=== PATIENT | male | born 1940 | race Caucasian/White ===

== ENCOUNTER → 2018-01-19 11:14 | Outpatient (CLI) | payer MEDICARE, SELFPAY ==
[2018-01-19 11:25] LABS: Add Manual Diff / Slide Review NO; Basophils Percent Auto 0.6 % (0-2); Eosinophils Percent Auto 1.5 % (2-4); Hemoglobin 14.5 g/dL (13.5-17.5); Lymphocytes Percent Auto 10.6 % (25-40); Mean Corpuscular HGB Conc 33.8 % (30-36); Mean Corpuscular Volume 97.6 fL (80-100); Monocytes Percent Auto 9.5 % (3-14); Neutrophils Absolute Auto 3900 /uL (3000-5900); Neutrophils Percent Auto 77.8 % (50-75); Platelet Count 228 X10^3/uL (150-400); Red Blood Cell Count 4.41 X10^6/uL (4.5-5.9)
[2018-01-19 11:43] LABS: Alanine Aminotransferase 20 IU/L (21-72); Albumin 3.8 g/dL (3.5-5.0); Albumin Globulin Ratio 1.2 (1.0-2.8); Alkaline Phosphatase 70 U/L (38-126); Aspartate Aminotransferase 20 IU/L (17-59); Bilirubin Total 0.5 mg/dL (0.2-1.3); Blood Urea Nitrogen 19 mg/dL (9-20); Calcium 8.6 mg/dL (8.4-10.2); Carbon Dioxide 27 mmol/L (22-32); Chloride 105 mmol/L (98-107); Estimated Glomerular Filt Rate > 60.0 mL/min (>60); Globulin 3.3 g/dL (1.7-4.1); Glucose 109 mg/dL (80-110); HEMOLYSIS < 15 (0-50); Potassium 4.8 mmol/L (3.4-5.1); Sodium 139 mmol/L (137-145); Total Protein 7.1 g/dL (6.3-8.2)
== END ==
PROVIDERS: PCP Family Medicine; Visit Provider Internal Medicine Hematology & Oncology
DX: C61 Malignant neoplasm of prostate (principal)
CPT/HCPCS: 36415; 80053; 84153; 85025

== ENCOUNTER → 2018-04-22 10:35 | Outpatient (CLI) | payer MEDICARE, SELFPAY ==
[2018-04-22 11:10] LABS: Add Manual Diff / Slide Review NO; Basophils Percent Auto 0.6 % (0-2); Eosinophils Percent Auto 1.5 % (2-4); Hematocrit 44.4 % (41-53); Lymphocytes Percent Auto 7.5 % (25-40); Mean Corpuscular HGB Conc 33.8 % (30-36); Mean Corpuscular Volume 97.8 fL (80-100); Monocytes Percent Auto 5.7 % (3-14); Neutrophils Absolute Auto 4900 /uL (3000-5900); Neutrophils Percent Auto 84.7 % (50-75); Platelet Count 240 X10^3/uL (150-400); Red Blood Cell Count 4.54 X10^6/uL (4.5-5.9); Red Cell Distribution Width 13.2 % (11.6-14.8); White Blood Cell Count 5.8 X10^3/uL (4.5-11.0)
[2018-04-22 11:24] LABS: Alanine Aminotransferase 21 IU/L (21-72); Albumin 3.7 g/dL (3.5-5.0); Albumin Globulin Ratio 1.2 (1.0-2.8); Alkaline Phosphatase 69 U/L (38-126); Aspartate Aminotransferase 21 IU/L (17-59); Bilirubin Total 0.5 mg/dL (0.2-1.3); Blood Urea Nitrogen 26 mg/dL (9-20); Calcium 8.7 mg/dL (8.4-10.2); Carbon Dioxide 29 mmol/L (22-32); Chloride 105 mmol/L (98-107); Estimated Glomerular Filt Rate > 60.0 mL/min (>60); Globulin 3.1 g/dL (1.7-4.1); Glucose 127 mg/dL (80-110); HEMOLYSIS < 15 (0-50); Potassium 4.5 mmol/L (3.4-5.1); Sodium 142 mmol/L (137-145); Total Protein 6.8 g/dL (6.3-8.2)
== END ==
PROVIDERS: PCP Family Medicine; Visit Provider Nurse Practitioner Gerontology
DX: C61 Malignant neoplasm of prostate (principal)
CPT/HCPCS: 36415; 80053; 84153; 84403; 85025

== ENCOUNTER → 2018-05-18 14:59 | Outpatient (CLI) | payer MEDICARE, SELFPAY ==
[2018-05-18 15:33] LABS: Add Manual Diff / Slide Review NO; Basophils Percent Auto 0.7 % (0-2); Eosinophils Percent Auto 3.1 % (2-4); Hematocrit 44.9 % (41-53); Hemoglobin 14.8 g/dL (13.5-17.5); Lymphocytes Percent Auto 10.2 % (25-40); Mean Corpuscular Hemoglobin 33.2 PG (26-34); Mean Corpuscular Volume 100.6 fL (80-100); Monocytes Percent Auto 9.2 % (3-14); Neutrophils Absolute Auto 3900 /uL (3000-5900); Neutrophils Percent Auto 76.8 % (50-75); Platelet Count 239 X10^3/uL (150-400); Red Blood Cell Count 4.46 X10^6/uL (4.5-5.9); Red Cell Distribution Width 13.2 % (11.6-14.8); White Blood Cell Count 5.1 X10^3/uL (4.5-11.0)
[2018-05-18 15:38] LABS: HEMOLYSIS 22 (0-50)
[2018-05-18 15:43] LABS: Alanine Aminotransferase 26 IU/L (21-72); Albumin 4.1 g/dL (3.5-5.0); Albumin Globulin Ratio 1.3 (1.0-2.8); Alkaline Phosphatase 69 U/L (38-126); Aspartate Aminotransferase 26 IU/L (17-59); Bilirubin Total 0.4 mg/dL (0.2-1.3); Blood Urea Nitrogen 24 mg/dL (9-20); Calcium 9.1 mg/dL (8.4-10.2); Carbon Dioxide 31 mmol/L (22-32); Chloride 105 mmol/L (98-107); Estimated Glomerular Filt Rate > 60.0 mL/min (>60); Globulin 3.1 g/dL (1.7-4.1); Glucose 126 mg/dL (80-110); Potassium 4.7 mmol/L (3.4-5.1); Sodium 144 mmol/L (137-145); Total Protein 7.2 g/dL (6.3-8.2)
== END ==
PROVIDERS: PCP Family Medicine; Visit Provider Nurse Practitioner Gerontology
DX: C61 Malignant neoplasm of prostate (principal)
CPT/HCPCS: 36415; 80053; 84153; 84403; 85025

== ENCOUNTER → 2018-05-26 07:44 | Outpatient (CLI) | payer MEDICARE, SELFPAY ==
--- NOTE | 2018-05-26 07:46 | DI.NM.S_ITS ---
PROCEDURE: [place] BONE SCAN WHOLE BODY RADIOPHARMACEUTICAL: 20.9 mCi Tc-99m MDP IV. INDICATIONS: PROSTATE CANCER TECHNIQUE: Delayed whole-body scintigrams were obtained approximately 3-4 hours after intravenous injection of radiotracer. COMPARISON: [place], [place], BONE SCAN WHOLE BODY, 09/03/2015, 14:35. [facility], CR, THORACIC SPINE 3 VIEWS, 07/21/2017, 13:47. [facility], XA, FRACTIONAL FLOW RESERVE, 04/20/2017, 14:07. [facility], CT, CHEST/ABD/PEL WITH CONTRAST, 08/26/2017, 12:30. [facility], CT, CT CHEST ABD PEL W CON, 05/26/2018, 9:02. [facility], CR, L-SPINE 2-3 VIEWS, 07/21/2017, 13:47. [facility], MR, T-SPINE WITHOUT CONTRAST, 08/26/2017, 12:29. [place], [place], BONE SCAN WHOLE BODY, 07/29/2017, 14:01. FINDINGS: There is increased uptake in sternum, correlating with an old sternal fracture. Compared to the last bone scan, the intensity of the uptake has decreased. There are foci of increased uptake in thoracic and lumbar spine. Prior radiographs, CT and MRI demonstrate multiple compression fractures and degenerative changes involving the thoracic and lumbar spine. There is a focal uptake in the right aspect of the sternoclavicular junction, unchanged since 08/30/3015, likely degenerative in nature. Low level increased uptake in multiple right posterior ribs are most likely posttraumatic in nature (related to old rib fractures). There are foci of increased periarticular activity involving involving the shoulders bilaterally, wrists and hands bilaterally, hips bilaterally (right greater than left), knees bilaterally, and both feet, compatible with degenerative/arthritic changes. There is normal soft tissue uptake. IMPRESSION: Multiple foci of scintigraphic abnormalities are present as described. Osseous metastasis could be obscured by superimposed compression fractures, degenerative changes, and rib fractures as bone scan findings are nonspecific. Please correlate with PSA. Dictated by: Juan Najera M.D. on 05/26/2018 at 16:42 Approved by: Juan Najera M.D. on 05/27/2018 at 14:26
--- NOTE | 2018-05-26 09:07 | DI.CT.S_ITS ---
PROCEDURE: CT CHEST ABD PEL W CON INDICATIONS: re-staging prostate cancer TECHNIQUE: After the administration of oral and intravenous contrast, 5 mm thick sections acquired from the lung apices to the symphysis. 5 mm coronal and sagittal reformats were performed, with additional 7 mm coronal MIP reformats through the lungs. For radiation dose reduction, the following was used: automated exposure control, adjustment of mA and/or kV according to patient size. COMPARISON: [facility], [place], BONE SCAN WHOLE BODY, 07/29/2017, 14:01. [facility], CT, ABDOMEN/PELVIS WITH CONTRAST, 09/03/2015, 11:37. [facility], CT, THORAX WITHOUT CONTRAST, 12/03/2015, 10:05. [facility], CT, THORAX WITHOUT CONTRAST, 09/12/2015, 10:08. [facility], CT, CHEST/ABD/PEL WITH CONTRAST, 08/26/2017, 12:30. FINDINGS: Image quality: Excellent. CHEST: Lungs and pleura: No acute consolidation. 2 mm presumed calcified granuloma seen in the right lung on image 42 series 3. There is mild subsegmental atelectasis/scarring. Subpleural nodular appearance measuring 3 mm seen in the left upper lobe on image 16 is unchanged.. No pleural effusions or pneumothorax. Central and peripheral airways appear patent and normal in caliber. Mediastinum: Heart size is normal. No pericardial effusion. [place] mediastinal lymph nodes without pathologic enlargement. No mediastinal or hilar adenopathy by size criteria. Thoracic aorta and central pulmonary arteries are normal in size. Esophagus is normal in caliber. No hiatal hernia. Chest wall: No axillary or supraclavicular adenopathy by size criteria. Thyroid gland unremarkable. ABDOMEN: Solid organs: Mild hepatic steatosis. Gallbladder unremarkable. Biliary system is non dilated. Pancreas enhances normally. Spleen is normal in size and enhancement. No adrenal nodules. Mild bilateral cortical atrophy and thinning. Nonobstructing 1 mm left renal calculus. Simple appearing left renal cyst. No hydronephrosis. The Peritoneum and bowel: Incidentally noted duodenal diverticulum as before. No free fluid or air. Colonic diverticulosis is seen without evidence of acute complication. Rectum is grossly unremarkable Nodes and vessels: No retroperitoneal or mesenteric adenopathy by size criteria. Aorta and inferior vena cava are normal in size. Miscellaneous: Fat-containing right paramedian supraumbilical hernia is enlarged slightly measuring 2 cm. Small fat containing umbilical hernia also noted as before. PELVIS: Genitourinary: Mild circumferential bladder wall thickening, which appears grossly unchanged and recommend clinical correlation. Miscellaneous: Previously described low-attenuation right pelvic sidewall presumed fluid collection may represent seroma or hematoma versus a necrotic treated lymphadenopathy. Internal attenuation measures approximate 7 Hounsfield units and is grossly unchanged in size. Bones: Diffuse osteopenia. L5 compression fracture appears grossly unchanged. Diffuse facet arthropathy. No definite sternal lesion. Chronic rib fractures with callus formation and posttraumatic deformity. IMPRESSION: Slight increase in size of right paramedian supraumbilical fat containing hernia, otherwise, no interval change or evidence of progressive metastatic disease. Presumed right pelvic sidewall hematoma or seroma versus treated disease appears unchanged. Chronic and incidental findings as above. Dictated by: Dimitris Mendez M.D. on 05/26/2018 at 10:12 Approved by: Dimitris Mendez M.D. on 05/26/2018 at 10:26
== END ==
PROVIDERS: PCP Family Medicine; Visit Provider Internal Medicine Hematology & Oncology
DX: C61 Malignant neoplasm of prostate (principal); K42.9 Umbilical hernia without obstruction or gangrene; M85.80 Other specified disorders of bone density and structure, unspecified site; K76.0 Fatty (change of) liver, not elsewhere classified; N20.0 Calculus of kidney; M48.56XS Collapsed vertebra, not elsewhere classified, lumbar region, sequela of fracture; M19.91 Primary osteoarthritis, unspecified site; Z87.81 Personal history of (healed) traumatic fracture
CPT/HCPCS: 71260; 74177; 78306; A9503; Q9967

== ENCOUNTER → 2018-06-28 17:42 | Outpatient (CLI) | payer MEDICARE, SELFPAY ==
--- NOTE | 2018-06-28 17:43 | DI.MRI.S_ITS ---
PROCEDURE: MR PELIS WO/W CON INDICATIONS: Restaging prostate cancer. TECHNIQUE: Coronal HASTE, axial T1 FSE with fat saturation, 3-plane nonbreath-hold T2 FSE. After the administration of contrast, dynamic axial, delayed axial and coronal VIBE or 2-D FLASH with fat saturation through the pelvis. Optional diffusion weighted imaging and ADC may be performed. COMPARISON: [facility], CT, ABDOMEN/PELVIS WITH CONTRAST, 09/03/2015, 11:37. [facility], CT, CHEST/ABD/PEL WITH CONTRAST, 08/26/2017, 12:30. [facility], CT, CT CHEST ABD PEL W CON, 05/26/2018, 9:02. FINDINGS: Image quality: Diagnostic. Prostate: The prostate is surgically absent. No discrete mass lesion is demonstrated in the surgical bed. There is mild nonspecific enhancement along the urethra at the base of the bladder and proximally in the penis. Genitourinary system: There is trabeculation of the bladder wall compatible with sequelae of chronic bladder outlet obstruction. No discrete bladder mass identified. Distal ureters are non distended. Bowel and peritoneum: No pathologic free pelvic fluid. Inferior colon and small bowel loops are normal in caliber. There is colonic diverticulosis without acute diverticulitis. Nodes and vessels: No definite pelvic or inguinal adenopathy by size criteria. Along the right pelvic sidewall, there is a thin-walled septated fluid collection redemonstrated measuring 4.9 x 3.2 x 2.9 cm. There is heterogeneous internal signal. Following contrast administration, there is mild enhancement of the wall and septum without internal solid enhancement or nodular components. Findings most likely represent a postsurgical seroma. Iliac vessels are normal in caliber. Soft tissues: No inguinal hernias. Bones: Marrow demonstrates normal overall signal, without definite suspicious lesions to suggest metastases. There are seen 3 changes in the right hip with subchondral edema, cystic changes, and enhancement in the superior acetabular rim. Mild indistinct periarticular soft tissue enhancement is also noted lateral to the femoral necks compatible with degenerative or inflammatory changes. IMPRESSION: 1. Postsurgical changes status post prostatectomy without suspicious mass lesions in the prostate bed or pelvis. Mild nonspecific enhancement is demonstrated along the urethra. The findings likely represent sequela of prior surgery or a mild infectious or inflammatory process. Recurrent disease is not fully excluded but considered less likely. 2. Septated right pelvic side wall fluid collection without discrete solid or nodular masslike component likely represents a postsurgical seroma. 3. Diverticulosis without acute diverticulitis. 4. 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 No definite suspicious bony lesions to suggest osseous metastatic disease. Dictated by: Rich Crowe M.D. on 06/29/2018 at 11:11 Approved by: Rich Crowe M.D. on 06/29/2018 at 11:26
[2018-06-28 18:20] LABS: Estimated Glomerular Filt Rate > 60.0 mL/min (>60)
== END ==
PROVIDERS: PCP Family Medicine; Visit Provider Internal Medicine Hematology & Oncology
DX: C61 Malignant neoplasm of prostate (principal); N32.89 Other specified disorders of bladder; K57.90 Diverticulosis of intestine, part unspecified, without perforation or abscess without bleeding; M16.11 Unilateral primary osteoarthritis, right hip
CPT/HCPCS: 36415; 72197; 82565; A9579

== ENCOUNTER 2018-07-26 19:45 | Emergency (ER) | payer MEDICARE, SELFPAY ==
--- NOTE | 2018-07-26 19:51 | DI.RAD.S_ITS ---
PROCEDURE: XR CHEST 2V INDICATIONS: trauma TECHNIQUE: 2 views of the chest were acquired. COMPARISON: [facility], , CHEST 1 VIEW, 04/18/2017, 14:55. FINDINGS: Surgical changes and devices: None. Lungs and pleura: No pleural effusions or pneumothorax. Lungs are unchanged, mildly distorted by old right-sided posterior rib fractures.. Mediastinum: Mediastinal contours are normal. Heart size is normal. Bones and chest wall: No suspicious bony abnormalities that would suggest acute trauma but there are old right-sided rib fractures posteriorly and mid thoracic adjacent wedge compression fractures. Soft tissues appear unremarkable. IMPRESSION: Old right-sided posterior rib fractures, no acute trauma to the left chest is found. Old mid thoracic wedge compression fractures, no acute spine fracture suspected. Dictated by: Bashir Hardin M.D. on 07/26/2018 at 20:51 Approved by: Bashir Hardin M.D. on 07/26/2018 at 20:53
[2018-07-26 19:52] VITALS: BP 158/75; PULSE 57; RESP 18; TEMP 36.2; O2SAT 99
--- NOTE | 2018-07-27 00:42 | PC.NURSE ---
[id number] Pt ambulating in ED hallway without distress. Pt asking for chest XR results, Dr Churchill notified. Apology and explaination given to patient for wait, he stated he just wants his results so he can go.
--- NOTE | 2018-07-27 02:52 | ED.BACK ---
HPI - Back Pain/Injury General Chief Complaint: Back Pain/Injury Stated Complaint: kicked by a horse in his back today,lungs hurt Time Seen by Provider: 07/26/18 23:48 Related Data Home Medications Medication Instructions Recorded Confirmed sildenafil [Viagra] 100 mg PO 3 X WEEK PRN #0 04/18/17 06/10/18 [GARLIC OIL] 1 cap PO QDAY #0 08/13/17 06/10/18 calcium carbonate-vitamin D3 1 tab PO QDAY #0 08/13/17 06/10/18 [Oyster Shell Calcium-Vit D3] zinc gluconate 1 tab PO QDAY #0 08/13/17 06/10/18 ibuprofen [Advil] 400 mg PO Q6HP PRN #0 08/27/17 06/10/18 Allergies Allergy/AdvReac Type Severity Reaction Status Date / Time timolol Allergy Verified 07/26/18 19:52 fentanyl AdvReac Verified 07/26/18 19:52 [facility] Social History Smoking Status: Never smoker Exam Initial Vital Signs Initial Vital Signs: Vital Signs Temperature 97.1 F L 07/26/18 19:52 Pulse Rate 57 L 07/26/18 19:52 Respiratory Rate 18 07/26/18 19:52 Blood Pressure 158/75 H 07/26/18 19:52 Pulse Oximetry 99 07/26/18 19:52 Course Course Narrative: The patient eloped from the emergency department, prior to being seen by me. Due to high volumes and long wait times in the lobby, pt's x-ray had been performed prior to his being brought into the emergency department, and I did not appreciate any emergent findings. Orders Ordered: ED Orders 07/26/18 19:51 XR chest 2V Stat Vital Signs - 8 hr 07/26/18 19:52 Temperature 97.1 F L Pulse Rate 57 L Respiratory Rate 18 Blood Pressure 158/75 H Pulse Oximetry 99 Discharge Plan Departure Patient Disposition: Left Without Being Seen Clinical Impression: Patient left without being seen Discharge Date/Time: 07/27/18 00:10 Interventions: ED Discharge Assessment Last Done: 07/27/18 00:43
--- NOTE | 2018-07-27 02:55 | ED_ITS ---
HPI - Back Pain/Injury General Chief Complaint: Back Pain/Injury Stated Complaint: kicked by a horse in his back today,lungs hurt Time Seen by Provider: 07/26/18 23:48 Related Data Home Medications Medication Instructions Recorded Confirmed sildenafil [Viagra] 100 mg PO 3 X WEEK PRN #0 04/18/17 06/10/18 [GARLIC OIL] 1 cap PO QDAY #0 08/13/17 06/10/18 calcium carbonate-vitamin D3 1 tab PO QDAY #0 08/13/17 06/10/18 [Oyster Shell Calcium-Vit D3] zinc gluconate 1 tab PO QDAY #0 08/13/17 06/10/18 ibuprofen [Advil] 400 mg PO Q6HP PRN #0 08/27/17 06/10/18 Allergies Allergy/AdvReac Type Severity Reaction Status Date / Time timolol Allergy Verified 07/26/18 19:52 fentanyl AdvReac Verified 07/26/18 19:52 [facility] Social History Smoking Status: Never smoker Exam Initial Vital Signs Initial Vital Signs: Vital Signs Temperature 97.1 F L 07/26/18 19:52 Pulse Rate 57 L 07/26/18 19:52 Respiratory Rate 18 07/26/18 19:52 Blood Pressure 158/75 H 07/26/18 19:52 Pulse Oximetry 99 07/26/18 19:52 Course Course Narrative: The patient eloped from the emergency department, prior to being seen by me. Due to high volumes and long wait times in the lobby, pt's x- ray had been performed prior to his being brought into the emergency department , and I did not appreciate any emergent findings. Orders Ordered: ED Orders 07/26/18 19:51 XR chest 2V Stat Vital Signs - 8 hr 07/26/18 19:52 Temperature 97.1 F L Pulse Rate 57 L Respiratory Rate 18 Blood Pressure 158/75 H Pulse Oximetry 99 Discharge Plan Departure Patient Disposition: Left Without Being Seen Clinical Impression: Patient left without being seen Discharge Date/Time: 07/27/18 00:10 Interventions: ED Discharge Assessment Last Done: 07/27/18 00:43
== END 2018-07-27 00:10 | disposition left against medical advice (07) ==
PROVIDERS: Emergency Provider Emergency Medicine; PCP Family Medicine
DX: M54.9 Dorsalgia, unspecified (principal)
CPT/HCPCS: 71046; 99281; 99282

== ENCOUNTER → 2018-11-20 08:34 | Outpatient (CLI) | payer MEDICARE, SELFPAY ==
[2018-11-20 09:22] LABS: Add Manual Diff / Slide Review NO; Alanine Aminotransferase 19 IU/L (21-72); Albumin 4.1 g/dL (3.5-5.0); Albumin Globulin Ratio 1.3 (1.0-2.8); Alkaline Phosphatase 71 U/L (38-126); Aspartate Aminotransferase 24 IU/L (17-59); Basophils Absolute Auto 0 /uL (0-100); Basophils Percent Auto 0.7 % (0-2); Bilirubin Total 0.7 mg/dL (0.2-1.3); Blood Urea Nitrogen 17 mg/dL (9-20); Calcium 9.1 mg/dL (8.4-10.2); Carbon Dioxide 28 mmol/L (22-32); Chloride 104 mmol/L (98-107); Eosinophils Absolute Auto 100 /uL (0-450); Eosinophils Percent Auto 2.9 % (2-4); Estimated Glomerular Filt Rate > 60.0 mL/min (>60); Globulin 3.2 g/dL (1.7-4.1); Glucose 97 mg/dL (80-110); HEMOLYSIS < 15 (0-50); Hematocrit 43.8 % (41-53); Hemoglobin 15.1 g/dL (13.5-17.5); Lymphocytes Absolute Auto 500 /uL (1100-4500); Lymphocytes Percent Auto 14.4 % (25-40); Mean Corpuscular HGB Conc 34.5 % (30-36); Mean Corpuscular Hemoglobin 33.7 PG (26-34); Mean Corpuscular Volume 97.7 fL (80-100); Monocytes Absolute Auto 400 /uL (0-900); Monocytes Percent Auto 11.5 % (3-14); Neutrophils Absolute Auto 2600 /uL (1500-7000); Neutrophils Percent Auto 70.5 % (50-75); Platelet Count 229 X10^3/uL (150-400); Potassium 4.4 mmol/L (3.4-5.1); Red Blood Cell Count 4.48 X10^6/uL (4.5-5.9); Sodium 139 mmol/L (137-145); Total Protein 7.3 g/dL (6.3-8.2); White Blood Cell Count 3.7 X10^3/uL (4.5-11.0)
[2018-11-20 09:51] LABS: Prostate Specific Antigen 0.283 ng/mL (0.10-4.00)
[2018-11-20 09:54] LABS: Testosterone 13.4 ng/dL (71.8-623)
[2018-11-23 15:04] LABS: Cholesterol 208 mg/dL (140-199); HDL Cholesterol 59 mg/dL (40-60); LDL Cholesterol Calculated 130 mg/dL (<100); Triglycerides 93 mg/dL (35-150)
[2018-11-23 15:33] LABS: Thyroid Stimulating Hormone 1.57 uIU/mL (0.47-4.68)
== END ==
PROVIDERS: PCP Family Medicine; Visit Provider Internal Medicine Hematology & Oncology
DX: I25.10 Atherosclerotic heart disease of native coronary artery without angina pectoris (principal); C61 Malignant neoplasm of prostate; Z00.00 Encounter for general adult medical examination without abnormal findings
CPT/HCPCS: 36415; 80053; 80061; 84153; 84403; 84443; 85025

== ENCOUNTER → 2019-02-09 16:30 | Outpatient (CLI) | payer MEDICARE, SELFPAY ==
--- NOTE | 2019-02-09 | DI.RAD.S_ITS ---
PROCEDURE: XR HAND LT MIN 3V INDICATIONS: FALL TECHNIQUE: 3 views of the hand(s) acquired. COMPARISON: None. FINDINGS: Bones: Acute intra-articular fracture involving ulnar aspect of fifth metacarpal base with dorsal and medially displaced fracture fragment. Osteophytic changes are noted throughout left hand and wrist. Diffuse osteopenia is seen. No other fracture or dislocation.. Carpal bones are normally aligned. No suspicious bony lesions. Soft tissues: No suspicious soft tissue calcifications. IMPRESSION: Acute intra-articular and displaced fracture involving the fifth metacarpal base as above. Left hand and wrist osteophytes. No other fracture or dislocation. Osteopenia. Dictated by: Darron Domínguez M.D. on 02/09/2019 at 18:05 Approved by: Darron Domínguez M.D. on 02/09/2019 at 18:06
--- NOTE | 2019-02-09 16:33 | DI.RAD.S_ITS ---
PROCEDURE: XR WRIST LT MIN 3V INDICATIONS: LEFT WRIST PAIN S/P FALL TECHNIQUE: 3 views of the wrist were acquired. COMPARISON: None. FINDINGS: Bones: Acute fracture involving the ulnar aspect of fifth metacarpal base with fracture line extending to fifth CMC joint and medially displaced fracture fragment. Osteophytic changes are noted throughout wrist joints. No other fracture or dislocation is seen.. No suspicious bony lesions. Scaphoid view: Scaphoid is grossly intact. Soft tissues: No suspicious soft tissue calcifications. IMPRESSION: Acute displaced fifth metacarpal base intra-articular fracture as above. Dictated by: Darron Domínguez M.D. on 02/09/2019 at 18:04 Approved by: Darron Domínguez M.D. on 02/09/2019 at 18:05
== END ==
PROVIDERS: PCP Family Medicine; Visit Provider Family Medicine
DX: M25.532 Pain in left wrist (principal); S62.317A Displaced fracture of base of fifth metacarpal bone, left hand, initial encounter for closed fracture; W19.XXXA Unspecified fall, initial encounter; M25.742 Osteophyte, left hand; M25.732 Osteophyte, left wrist; M85.842 Other specified disorders of bone density and structure, left hand
CPT/HCPCS: 73110; 73130

== ENCOUNTER → 2019-02-17 12:40 | Oncology outpatient (ONC) | payer MEDICARE, SELFPAY ==
--- NOTE | 2018-01-22 08:28 | P.PNONC_ITS ---
Assessment and Plan (1) Prostate cancer Current visit: Yes Status: Acute 01/22/18 09:08 Mr Kapadia is a 77-year-old male with a history of Carcinoma of the prostate diagnosed in 2015, status post induction Lupron for 5 months followed by robotic prostatectomy with pelvic lymph node dissection, 03/28/2016, in [place]. No new findings or symptoms to suggest metastatic disease. PSA remains quite stable at 1.480. Previously was 1.49. CBC and CMP otherwise unremarkable. Patient has no clinical signs or symptoms of disease recurrence. Plan is to return to clinic in 3 months for provider visit CBC CMP PSA testosterone. - Time Spent with Patient 25 mins face to face 5 mins review of records prior 5 mins dictation PN -Subjective Interval history: Mr. Kapadia is a 77-year-old gentleman with a history of stage IIIC (ypT3 pN0 M0) carcinoma of the prostate, status post robotic prostatectomy with bilateral pelvic lymph node dissection, 03/28/2016, following 5 months of induction Lupron. Surgery performed in [place]. [place] 4 + 3 =7 disease. In review of Dr Garcia notes plan was to treat for PSA of 5 or higher. Mr Kapadia presents for 2 month clinical evaluation. He has no new complaints on exam today whatsoever. He does continue to have chronic back pain also some knee pain. He has severe kyphosis. He has old vertebral fractures. He will occasionally take Tylenol or Advil. Otherwise doing quite well. No change in bowel or bladder habits. No change in appetite, weight is stable. No new musculoskeletal pain. No headaches. No cough, fever, chills. No recent illnesses, no recent infections. PAST MEDICAL HISTORY: 1. Carcinoma of the prostate, stage IIIC (ypT3 pN0 M0). Treated with induction Lupron, 10/2015 to 03/2016. Robotic prostatectomy with bilateral pelvic lymph node dissection on 03/28/2016 in [place]. Adenocarcinoma, [place] score 4 + 3 = 7 involving 15% of entire gland according to Dr. Kaba's note. Bilateral direct extension into seminal vesicles noted. Negative margins. Twelve lymph nodes, all negative. 2. Hyperlipidemia. 3. Chronic back pain, secondary to past fractures and trauma. Home Medications and Allergies Home Medications Medication Instructions Recorded Confirmed Type sildenafil [Viagra] 100 mg PO 3 X WEEK PRN #0 04/18/17 History [GARLIC OIL] 1 cap PO QDAY #0 08/13/17 History atorvastatin [Lipitor] 20 mg PO HS #0 08/13/17 History calcium carbonate-vitamin D3 1 tab PO QDAY #0 08/13/17 History [Oyster Shell Calcium-Vit D3] zinc gluconate 1 tab PO QDAY #0 08/13/17 History ibuprofen [Advil] 400 mg PO Q6HP PRN #0 08/27/17 History Exam Narrative: well appearing - Constitutional positive no acute distress, positive average body habitus - Routine HEENT Exam Head: Present: normocephalic, atraumatic Eye: Present: EOMI, PERRL, normal accommodation, conjunctivae pink. Absent: conjunctival icterus, scleral injection ENT: Present: mucous membranes moist - Routine Neck Exam Present: supple. Absent: lymphadenopathy - Routine Respiratory Exam Present: Clear to auscultation bilaterally, decreased breath sounds. Absent: rales, rhonchi, wheezes - Routine Cardiovascular Exam Present: RRR, S1, S2. Absent: murmur, gallop, rubs, JVD - Routine Abdominal Exam Present: soft, normoactive bowel sounds. Absent: tenderness, distended, organomegaly - Routine Extremities Exam Absent: edema, calf tenderness - Routine Skin Exam Present: intact, normal turgor. Absent: petechiae - Routine Neurological Exam Present: alert, oriented X3 - Routine Psychiatric Exam Present: normal affect
[2018-01-22 08:45] VITALS: BP 139/74; PULSE 52; RESP 18; TEMP 36.8; O2SAT 97
--- NOTE | 2018-04-26 10:14 | ONC.APRN.PN ---
PN -Subjective Interval history: Mr. Kapadia is a 77-year-old gentleman with a history of stage IIIC (ypT3 pN0 M0) carcinoma of the prostate, status post robotic prostatectomy with bilateral pelvic lymph node dissection, 03/28/2016, following 5 months of induction Lupron. Surgery performed in [place]. [place] 4 + 3 =7 disease. In review of Dr Garcia notes plan was to treat for PSA of 5 or higher. Mr Kapadia presents for 2 month clinical evaluation. He has no new complaints on exam today whatsoever. He does continue to have chronic back pain also some knee pain. He has severe kyphosis. He has old vertebral fractures. He will occasionally take Tylenol or Advil. Otherwise doing quite well. No change in bowel or bladder habits. No change in appetite, weight is stable. No new musculoskeletal pain. No headaches. No cough, fever, chills. No recent illnesses, no recent infections. PSA today 2.230, previously 1.480 01/22/2018. Testosterone today 203 PAST MEDICAL HISTORY: 1. Carcinoma of the prostate, stage IIIC (ypT3 pN0 M0). Treated with induction Lupron, 10/2015 to 03/2016. Robotic prostatectomy with bilateral pelvic lymph node dissection on 03/28/2016 in [place]. Adenocarcinoma, [place] score 4 + 3 = 7 involving 15% of entire gland according to Dr. Kaba's note. Bilateral direct extension into seminal vesicles noted. Negative margins. Twelve lymph nodes, all negative. 2. Hyperlipidemia. 3. Chronic back pain, secondary to past fractures and trauma. Home Medications and Allergies Home Medications Medication Instructions Recorded Confirmed Type sildenafil [Viagra] 100 mg PO 3 X WEEK PRN #0 04/18/17 History [GARLIC OIL] 1 cap PO QDAY #0 08/13/17 History calcium carbonate-vitamin D3 1 tab PO QDAY #0 08/13/17 History [Oyster Shell Calcium-Vit D3] zinc gluconate 1 tab PO QDAY #0 08/13/17 History ibuprofen [Advil] 400 mg PO Q6HP PRN #0 08/27/17 History Exam Vital signs: Last Vital Signs Temp 98.2 F 01/22/18 08:45 Pulse 52 L 01/22/18 08:45 Resp 18 01/22/18 08:45 BP 139/74 H 01/22/18 08:45 Pulse Ox 97 01/22/18 08:45 - Constitutional positive no acute distress, positive average body habitus - Routine HEENT Exam Eye: Present: conjunctivae pink. Absent: conjunctival icterus, scleral injection ENT: Present: mucous membranes moist, oropharynx clear - Routine Neck Exam Present: supple. Absent: lymphadenopathy - Routine Chest/Breast/Axilla Exam Axillae: Absent: lymphadenopathy, mass - Routine Respiratory Exam Present: Clear to auscultation bilaterally. Absent: rales, rhonchi, wheezes - Routine Cardiovascular Exam Present: RRR, S1, S2. Absent: JVD - Routine Abdominal Exam Present: soft, normoactive bowel sounds. Absent: tenderness, distended, organomegaly, mass - Routine Extremities Exam Absent: edema - Routine Skin Exam Present: intact, normal turgor - Routine Neurological Exam Present: alert, oriented X3 - Routine Psychiatric Exam Present: normal affect Assessment and Plan (1) Prostate cancer Current visit: No Status: Acute Mr. Kapadia is a 77-year-old gentleman with a history of stage IIIC (ypT3 pN0 M0) carcinoma of the prostate, status post robotic prostatectomy with bilateral pelvic lymph node dissection, 03/28/2016, following 5 months of induction Lupron. Surgery performed in [place]. [place] 4 + 3 =7 disease. In review of Dr Garcia notes plan was to treat for PSA of 5 or higher. PSA today 2.230, previously 1.480 01/22/2018. The pt understands his PSA is up and needs to be followed closely. Pt remains asymptomatic. Testosterone today 203 I have asked the pt to return in 4 weeks to establish with one of our new oncologists. We will check a PSA and testosterone a few days prior. Pt understands if PSA remains elevated we will likely order a CT also bone scan and treatment may very well be indicated.
[2018-04-26 11:43] VITALS: BP 129/77; PULSE 60; RESP 18; TEMP 36.8; O2SAT 97
--- NOTE | 2018-04-26 12:16 | PC.NURSE ---
Critical PLT 10 taken from lab. PLT tx ordered per Dr. Mckeon, to be transfused tomorrow.
[2018-05-24 14:59] VITALS: BP 160/89; PULSE 53; RESP 18; TEMP 36.6; O2SAT 99
--- NOTE | 2018-05-24 15:12 | P.PNONC_ITS ---
PN -Subjective Interval history: Chief Complaint Prostate cancer, biochemical relapse? Oncological History Mr. Kapadia is a 77-year-old gentleman with a history of stage IIIC (ypT3 pN0 M0) carcinoma of the prostate, status post robotic prostatectomy with bilateral pelvic lymph node dissection, 03/28/2016, following 5 months of induction Lupron which was initially intended for part of the plan for proton therapy. Patient changed his mind and decided to get surgery instead. Surgery performed in [place]. [place] 4 + 3 =7 disease involving 15% of entire gland according to Dr. Kaba's note. Bilateral direct extension into seminal vesicles noted. Negative margins. Twelve lymph nodes. In review of Dr Garcia notes plan was to treat for PSA of 5 or higher. According to his PSA level has never decreasd to 0 after the surgery. After the surgery, he did not continue lupron. he said that the PSA has been gradually and slowly going up. He said he noticed that the doubling time has been less than 6 months. In December 2017, he underwent CT scan and bone scan and all of them were negative. Interim Events: He has pain every where, from trauma. He also has osteoporosis. He had fall 15 years ago with back vertebreal fracture. He has a couple of incisonal hernia with some mild discomfort.No hematuira. No pain on urination. - Additional ROS All systems PM: reviewed and no additional remarkable complaints except as stated Home Medications and Allergies Home Medications Medication Instructions Recorded Confirmed Type sildenafil [Viagra] 100 mg PO 3 X WEEK PRN #0 04/18/17 History [GARLIC OIL] 1 cap PO QDAY #0 08/13/17 History calcium carbonate-vitamin D3 1 tab PO QDAY #0 08/13/17 History [Oyster Shell Calcium-Vit D3] zinc gluconate 1 tab PO QDAY #0 08/13/17 History ibuprofen [Advil] 400 mg PO Q6HP PRN #0 08/27/17 History Exam Vital signs: Last Vital Signs Temp 97.9 F 05/24/18 14:59 Pulse 53 L 05/24/18 14:59 Resp 18 05/24/18 14:59 BP 160/89 H 05/24/18 14:59 Pulse Ox 99 05/24/18 14:59 ECOG 1 Narrative: Constitutional: Well developed, well nourished, not in any acute respiratory distress, average body habitus, well groomed, pleasant and cooperative. HEENT: Normocephalic atraumatic. Extraocular muscle movement intact. Pupils are round, equal and reactive to light and accommodations. Anicteric sclera. No hearing difficulty; Oral mucus membrane moist and without ulcers. Neck: Supple, symmetrical, and tracheal midline; No palpable thyromegaly and no palpable lymph nodes. Respiratory: No use of accessory muscles. Clear to auscultation, and no wheezes or rales or rubs. Cardiovascular: Regular rate and rhythm, S1 and S2 normal, no murmurs gallops or rubs. No JVD. No pitting edema of lower extremities. Abdomen: Soft, nontender, non-distended, bowel sounds normal, no palpable organomegaly, no hernia, no palpable masses. Lower extremities: No palpable pedal edema. Lymphatic: no palpable lymph nodes in the neck, axillae, or groins. Musculoskeletal: normal gait and station, no clubbing, no cyanosis, no pitting edema. Skin: no rashes, no ulcers, no petechiae Neurological: Awake and alert and oriented x3. CN II-XII grossly intact. No focal motor or sensory deficit. Psychiatric: Good judgment, good insight, normal affect, normal thought process , cooperative, no depression, no anxiety. Results - Labs Reviewed. Assessment and Plan (1) Prostate cancer Stage IIIC (ypT3, pN0 M0), [place] 4+3, prostate adenocarcinoma status post robotic prostatectomy after a brief 5 months of treatment with Lupron. Postoperatively patient has a slowly rising PSA level suspicious for possible biochemical relapse. Plan: 1. Referal to Radiation Oncology for evaluation of salvage treatment 2. CT CAP with contrast 3. Bone scan 4. RTC in 2 weeks.
--- NOTE | 2018-06-09 12:23 | ONC.SCHED ---
06/08/18: Pt left voicemail that he would reschedule [place] appointment
--- NOTE | 2018-06-10 10:43 | P.PNONC_ITS ---
PN -Subjective Interval history: 78 year old with prostate cancer with persistent elevated PSA after prostatectomy. He admitted that he was out of town and did not get back in time for scheduled Radiation Oncology consult at [facility]. Patient has rescheduled. Clinically patient did not have any new signs or symptoms. He is here to review of the scan results including CT scan as well as bone scan. The CT scan did not see any evidence of distant metastasis or pelvic lymph nodes enlargement. The bone scan did show some uptake which is difficult to interpret due to injuries in the back. No other new events. Oncological History Mr. Kapadia is a 78-year-old gentleman with a history of stage IIIC (ypT3 pN0 M0) carcinoma of the prostate, status post robotic prostatectomy with bilateral pelvic lymph node dissection, 03/28/2016, following 5 months of induction Lupron which was initially intended for part of the plan for proton therapy. Patient changed his mind and decided to get surgery instead. Surgery performed in [place]. Path showed prostate cancer, [place] 4 + 3 =7, involving 15% of entire gland according to Dr. Kaba's note. Bilateral direct extension into seminal vesicles noted. Negative margins. Twelve lymph nodes all negative. His PSA level has never decreased to 0 after the surgery. After the surgery, he did not continue lupron. He said that the PSA has been gradually and slowly going up. He said he noticed that the doubling time has been less than 6 months. In December 2017, he underwent CT scan and bone scan and all of them were negative. In review of Dr Garcia notes, the plan was to treat for PSA of 5 or higher. He has pain every where, from trauma. He also has osteoporosis. He had fall 15 years ago with back vertebreal fracture. He has a couple of incisional hernia with some mild discomfort. No hematuira. No pain on urination. - Additional ROS All systems PM: reviewed and no additional remarkable complaints except as stated Home Medications and Allergies Home Medications Medication Instructions Recorded Confirmed Type sildenafil [Viagra] 100 mg PO 3 X WEEK PRN #0 04/18/17 06/10/18 History [GARLIC OIL] 1 cap PO QDAY #0 08/13/17 06/10/18 History calcium carbonate-vitamin D3 1 tab PO QDAY #0 08/13/17 06/10/18 History [Oyster Shell Calcium-Vit D3] zinc gluconate 1 tab PO QDAY #0 08/13/17 06/10/18 History ibuprofen [Advil] 400 mg PO Q6HP PRN #0 08/27/17 06/10/18 History Exam Vital signs: Last Vital Signs Temp 97.8 F 06/10/18 11:13 Pulse 62 06/10/18 11:13 Resp 16 06/10/18 11:13 BP 146/75 H 06/10/18 11:13 Pulse Ox 98 06/10/18 11:13 ECOG 1 - Constitutional positive no acute distress, positive cooperative - Routine HEENT Exam Head: Present: normocephalic, atraumatic Eye: Present: EOMI, PERRL. Absent: conjunctival icterus ENT: Present: mucous membranes moist - Routine Neck Exam Present: supple. Absent: lymphadenopathy, thyromegaly - Routine Respiratory Exam Present: Clear to auscultation bilaterally. Absent: wheezes - Routine Cardiovascular Exam Present: RRR, S1, S2. Absent: murmur, gallop, rubs, S3 - Routine Extremities Exam Absent: edema - Routine Neurological Exam Present: alert, oriented X3, CN II-XII intact. Absent: sensory deficit, motor deficit - Routine Psychiatric Exam Present: normal affect, normal thought process, cooperative, good insight, good judgment Results - Labs Reviewed. Assessment and Plan (1) Prostate cancer Stage IIIC (ypT3, pN0 M0), [place] 4+3, prostate adenocarcinoma status post robotic prostatectomy after a brief 5 months of treatment with Lupron. Postoperatively patient has a slowly rising PSA level suspicious for possible biochemical relapse. And most recent PSA level was 0.287. I talked with the patient that salvage radiotherapy is indicated. In addition patient will need androgen deprivation therapy. Today, I discussed with the patient about initiating androgen deprivation therapy. However patient would like to wait until he sees radiation oncologist and then decides. Plan: 1. Encouraged him to Radiation Oncology for evaluation of salvage treatment 2. RTC in 4 weeks, CBC, CMP, PSA/T.
[2018-06-10 11:13] VITALS: BP 146/75; PULSE 62; RESP 16; TEMP 36.6; O2SAT 98
[2018-07-01 11:48] LABS: Add Manual Diff / Slide Review NO; Basophils Percent Auto 0.4 % (0-2); Hematocrit 43.6 % (41-53); Hemoglobin 14.6 g/dL (13.5-17.5); Lymphocytes Percent Auto 9.1 % (25-40); Mean Corpuscular HGB Conc 33.5 % (30-36); Mean Corpuscular Hemoglobin 33.4 PG (26-34); Mean Corpuscular Volume 99.6 fL (80-100); Neutrophils Absolute Auto 3700 /uL (3000-5900); Neutrophils Percent Auto 78.5 % (50-75); Platelet Count 242 X10^3/uL (150-400); Red Blood Cell Count 4.38 X10^6/uL (4.5-5.9); Red Cell Distribution Width 12.9 % (11.6-14.8); White Blood Cell Count 4.7 X10^3/uL (4.5-11.0)
[2018-07-01 12:01] LABS: Alanine Aminotransferase 26 IU/L (21-72); Albumin 3.8 g/dL (3.5-5.0); Albumin Globulin Ratio 1.3 (1.0-2.8); Alkaline Phosphatase 66 U/L (38-126); Aspartate Aminotransferase 21 IU/L (17-59); BUN Creatinine Ratio 17.3 (6-22); Bilirubin Total 0.3 mg/dL (0.2-1.3); Blood Urea Nitrogen 19 mg/dL (9-20); Calcium 8.6 mg/dL (8.4-10.2); Carbon Dioxide 28 mmol/L (22-32); Chloride 104 mmol/L (98-107); Estimated Glomerular Filt Rate > 60.0 mL/min (>60); Glucose 119 mg/dL (80-110); HEMOLYSIS < 15 (0-50); Potassium 4.2 mmol/L (3.4-5.1); Sodium 141 mmol/L (137-145); Total Protein 6.8 g/dL (6.3-8.2)
--- NOTE | 2018-07-01 14:36 | PC.NURSE ---
labs stable, provider visit on 07/02
--- NOTE | 2018-07-02 14:18 | ONC.PN ---
PN -Subjective Interval history: 78 year old with prostate cancer with persistent elevated PSA after prostatectomy. Due to the rising PSA, I have referred the patient to Radiation Oncology for discussion of salvage radiation treatment. However patient has been very very on certain about whether he should get the treatment or not. Patient said that all the scans have not show any evidence of disease and if the 2 radiation the do not do well to radiation and is going to be a gets work. In addition patient is also very much reluctant to start treatment with Lupron. He said that Lupron injections not found on at all. Patient underwent MRI of the pelvis with and without contrast on 06/28/2018. The MRI basically showed postsurgical changes without clear evidence of lymph nodes enlargement or masses within the pelvic area. Patient presents here today for follow-up of the results. Oncological History Mr. Kapadia is a 78-year-old gentleman with a history of stage IIIC (ypT3 pN0 M0) carcinoma of the prostate, status post robotic prostatectomy with bilateral pelvic lymph node dissection, 03/28/2016, following 5 months of induction Lupron which was initially intended for part of the plan for proton therapy. Patient changed his mind and decided to get surgery instead. Surgery performed in [place]. Path showed prostate cancer, Jessica 4 + 3 =7, involving 15% of entire gland according to Dr. Kaba's note. Bilateral direct extension into seminal vesicles noted. Negative margins. Twelve lymph nodes all negative. His PSA level has never decreased to 0 after the surgery. After the surgery, he did not continue lupron. He said that the PSA has been gradually and slowly going up. He said he noticed that the doubling time has been less than 6 months. In December 2017, he underwent CT scan and bone scan and all of them were negative. In review of Dr Garcia notes, the plan was to treat for PSA of 5 or higher. He has pain every where, from trauma. He also has osteoporosis. He had fall 15 years ago with back vertebreal fracture. He has a couple of incisional hernia with some mild discomfort. No hematuira. No pain on urination. - Additional ROS All systems PM: reviewed and no additional remarkable complaints except as stated Home Medications and Allergies Home Medications Medication Instructions Recorded Confirmed Type sildenafil [Viagra] 100 mg PO 3 X WEEK PRN #0 04/18/17 06/10/18 History [GARLIC OIL] 1 cap PO QDAY #0 08/13/17 06/10/18 History calcium carbonate-vitamin D3 1 tab PO QDAY #0 08/13/17 06/10/18 History [Oyster Shell Calcium-Vit D3] zinc gluconate 1 tab PO QDAY #0 08/13/17 06/10/18 History ibuprofen [Advil] 400 mg PO Q6HP PRN #0 08/27/17 06/10/18 History Exam Vital signs: Last Vital Signs Temp 97.6 F 07/02/18 14:21 Pulse 65 07/02/18 14:21 Resp 18 07/02/18 14:21 BP 141/75 H 07/02/18 14:21 Pulse Ox 98 07/02/18 14:21 ECOG 1 Narrative: Constitutional: WDWN, NAD, average body habitus, well groomed, pleasant and cooperative. HEENT: NCAT, EOMI, PERRLA, anicteric sclera, no hearing difficulty; Oral mucus membrane moist and without ulcers. Neck: Supple, symmetrical, and tracheal midline; No palpable thyromegaly and no palpable lymph nodes. Respiratory: No use of accessory muscles. Clear to auscultation, and no wheezes or rales or rubs. Cardiovascular: Regular rate and rhythm, S1 and S2 normal, no murmurs gallops or rubs. No JVD. No pitting edema of lower extremities. Abdomen: Soft, nontender, non-distended, bowel sounds normal, no palpable organomegaly, no hernia, no palpable masses. Lower extremities: No palpable pedal edema. Lymphatic: no palpable lymph nodes in the neck, axillae, or groins. Musculoskeletal: normal gait and station, no clubbing, no cyanosis, no pitting edema. Skin: no rashes, no ulcers, no petechiae Neurological: Awake and alert and oriented x3. CN II-XII grossly intact. No focal motor or sensory deficit. Psychiatric: Good judgment, good insight, normal affect, normal thought process, cooperative, no depression, no anxiety. Results - Labs Laboratory Last Values WBC 4.7 X10^3/uL (4.5-11.0) 07/01/18 11:38 RBC 4.38 X10^6/uL (4.5-5.9) L 07/01/18 11:38 Hgb 14.6 g/dL (13.5-17.5) 07/01/18 11:38 Hct 43.6 % (41-53) 07/01/18 11:38 MCV 99.6 fL (80-100) 07/01/18 11:38 MCH 33.4 PG (26-34) 07/01/18 11:38 MCHC 33.5 % (30-36) 07/01/18 11:38 RDW 12.9 % (11.6-14.8) 07/01/18 11:38 Plt Count 242 X10^3/uL (150-400) 07/01/18 11:38 Neut % (Auto) 78.5 % (50-75) H 07/01/18 11:38 Lymph % (Auto) 9.1 % (25-40) L 07/01/18 11:38 Mcleod % (Auto) 10.0 % (3-14) 07/01/18 11:38 Eos % (Auto) 2.0 % (2-4) 07/01/18 11:38 Baso % (Auto) 0.4 % (0-2) 07/01/18 11:38 Neut # (Auto) 3700 /uL (7801-9534) 07/01/18 11:38 Sodium 141 mmol/L (137-145) 07/01/18 11:38 Potassium 4.2 mmol/L (3.4-5.1) 07/01/18 11:38 Chloride 104 mmol/L (98-107) 07/01/18 11:38 Carbon Dioxide 28 mmol/L (22-32) 07/01/18 11:38 BUN 19 mg/dL (9-20) 07/01/18 11:38 Creatinine 1.10 mg/dL (0.66-1.25) 07/01/18 11:38 Estimated GFR > 60.0 mL/min (>60) 07/01/18 11:38 BUN/Creatinine Ratio 17.3 (6-22) 07/01/18 11:38 Glucose 119 mg/dL (80-110) H 07/01/18 11:38 Calcium 8.6 mg/dL (8.4-10.2) 07/01/18 11:38 Total Bilirubin 0.3 mg/dL (0.2-1.3) 07/01/18 11:38 AST 21 IU/L (17-59) 07/01/18 11:38 ALT 26 IU/L (21-72) 07/01/18 11:38 Alkaline Phosphatase 66 U/L (38-126) 07/01/18 11:38 Total Protein 6.8 g/dL (6.3-8.2) 07/01/18 11:38 Albumin 3.8 g/dL (3.5-5.0) 07/01/18 11:38 Globulin 3.0 g/dL (1.7-4.1) 07/01/18 11:38 Albumin/Globulin Ratio 1.3 (1.0-2.8) 07/01/18 11:38 Prostate Specific Ag 2.750 ng/mL (0.10-4.00) 07/01/18 11:38 Testosterone Level 212.0 ng/dL (71.8-623) 07/01/18 11:38 Assessment and Plan (1) Prostate cancer Stage IIIC (ypT3, pN0 M0), GS 4+3, prostate adenocarcinoma status post robotic prostatectomy after a brief 5 months of treatment with Lupron. Postoperatively patient has a slowly rising PSA level suspicious for possible biochemical relapse. Today, I discussed with the patient about initiating androgen deprivation therapy and salvage radiation treatment. And patient is very much uncertain about whether he should proceed with salvage radiation treatment or not. As I mentioned in the history of present illness, patient was asking if there is no imaging evidence of disease recurrence or metastasis, how do we know where to irradiate. It is more or less a guess work at this moment. In addition patient is also wiling to start androgen deprivation therapy yet. Patient would like to get a second opinion from best places. I talked about the [facility] versus [place] [facility] versus [facility]. Eventually patient elected to go to [facility] for further evaluation. Plan: 1. Second opinion at [facility]/ 2. RTC in 6 weeks for follow up.
[2018-07-02 14:21] VITALS: BP 141/75; PULSE 65; RESP 18; TEMP 36.4; O2SAT 98
--- NOTE | 2018-07-02 14:22 | P.PNONC_ITS ---
PN -Subjective Interval history: 78 year old with prostate cancer with persistent elevated PSA after prostatectomy. Due to the rising PSA, I have referred the patient to Radiation Oncology for discussion of salvage radiation treatment. However patient has been very very on certain about whether he should get the treatment or not. Patient said that all the scans have not show any evidence of disease and if the 2 radiation the do not do well to radiation and is going to be a gets work. In addition patient is also very much reluctant to start treatment with Lupron. He said that Lupron injections not found on at all. Patient underwent MRI of the pelvis with and without contrast on 06/28/2018. The MRI basically showed postsurgical changes without clear evidence of lymph nodes enlargement or masses within the pelvic area. Patient presents here today for follow-up of the results. Oncological History Mr. Kapadia is a 78-year-old gentleman with a history of stage IIIC (ypT3 pN0 M0) carcinoma of the prostate, status post robotic prostatectomy with bilateral pelvic lymph node dissection, 03/28/2016, following 5 months of induction Lupron which was initially intended for part of the plan for proton therapy. Patient changed his mind and decided to get surgery instead. Surgery performed in [place]. Path showed prostate cancer, Jessica 4 + 3 =7, involving 15% of entire gland according to Dr. Kaba's note. Bilateral direct extension into seminal vesicles noted. Negative margins. Twelve lymph nodes all negative. His PSA level has never decreased to 0 after the surgery. After the surgery, he did not continue lupron. He said that the PSA has been gradually and slowly going up. He said he noticed that the doubling time has been less than 6 months. In December 2017, he underwent CT scan and bone scan and all of them were negative. In review of Dr Garcia notes, the plan was to treat for PSA of 5 or higher. He has pain every where, from trauma. He also has osteoporosis. He had fall 15 years ago with back vertebreal fracture. He has a couple of incisional hernia with some mild discomfort. No hematuira. No pain on urination. - Additional ROS All systems PM: reviewed and no additional remarkable complaints except as stated Home Medications and Allergies Home Medications Medication Instructions Recorded Confirmed Type sildenafil [Viagra] 100 mg PO 3 X WEEK PRN #0 04/18/17 06/10/18 History [GARLIC OIL] 1 cap PO QDAY #0 08/13/17 06/10/18 History calcium carbonate-vitamin D3 1 tab PO QDAY #0 08/13/17 06/10/18 History [Oyster Shell Calcium-Vit D3] zinc gluconate 1 tab PO QDAY #0 08/13/17 06/10/18 History ibuprofen [Advil] 400 mg PO Q6HP PRN #0 08/27/17 06/10/18 History Exam Vital signs: Last Vital Signs Temp 97.6 F 07/02/18 14:21 Pulse 65 07/02/18 14:21 Resp 18 07/02/18 14:21 BP 141/75 H 07/02/18 14:21 Pulse Ox 98 07/02/18 14:21 ECOG 1 Narrative: Constitutional: WDWN, NAD, average body habitus, well groomed, pleasant and cooperative. HEENT: NCAT, EOMI, PERRLA, anicteric sclera, no hearing difficulty; Oral mucus membrane moist and without ulcers. Neck: Supple, symmetrical, and tracheal midline; No palpable thyromegaly and no palpable lymph nodes. Respiratory: No use of accessory muscles. Clear to auscultation, and no wheezes or rales or rubs. Cardiovascular: Regular rate and rhythm, S1 and S2 normal, no murmurs gallops or rubs. No JVD. No pitting edema of lower extremities. Abdomen: Soft, nontender, non-distended, bowel sounds normal, no palpable organomegaly, no hernia, no palpable masses. Lower extremities: No palpable pedal edema. Lymphatic: no palpable lymph nodes in the neck, axillae, or groins. Musculoskeletal: normal gait and station, no clubbing, no cyanosis, no pitting edema. Skin: no rashes, no ulcers, no petechiae Neurological: Awake and alert and oriented x3. CN II-XII grossly intact. No focal motor or sensory deficit. Psychiatric: Good judgment, good insight, normal affect, normal thought process , cooperative, no depression, no anxiety. Results - Labs Laboratory Last Values WBC 4.7 X10^3/uL (4.5-11.0) 07/01/18 11:38 RBC 4.38 X10^6/uL (4.5-5.9) L 07/01/18 11:38 Hgb 14.6 g/dL (13.5-17.5) 07/01/18 11:38 Hct 43.6 % (41-53) 07/01/18 11:38 MCV 99.6 fL (80-100) 07/01/18 11:38 MCH 33.4 PG (26-34) 07/01/18 11:38 MCHC 33.5 % (30-36) 07/01/18 11:38 RDW 12.9 % (11.6-14.8) 07/01/18 11:38 Plt Count 242 X10^3/uL (150-400) 07/01/18 11:38 Neut % (Auto) 78.5 % (50-75) H 07/01/18 11:38 Lymph % (Auto) 9.1 % (25-40) L 07/01/18 11:38 Harrison % (Auto) 10.0 % (3-14) 07/01/18 11:38 Eos % (Auto) 2.0 % (2-4) 07/01/18 11:38 Baso % (Auto) 0.4 % (0-2) 07/01/18 11:38 Neut # (Auto) 3700 /uL (9549-2293) 07/01/18 11:38 Sodium 141 mmol/L (137-145) 07/01/18 11:38 Potassium 4.2 mmol/L (3.4-5.1) 07/01/18 11:38 Chloride 104 mmol/L (98-107) 07/01/18 11:38 Carbon Dioxide 28 mmol/L (22-32) 07/01/18 11:38 BUN 19 mg/dL (9-20) 07/01/18 11:38 Creatinine 1.10 mg/dL (0.66-1.25) 07/01/18 11:38 Estimated GFR > 60.0 mL/min (>60) 07/01/18 11:38 BUN/Creatinine Ratio 17.3 (6-22) 07/01/18 11:38 Glucose 119 mg/dL (80-110) H 07/01/18 11:38 Calcium 8.6 mg/dL (8.4-10.2) 07/01/18 11:38 Total Bilirubin 0.3 mg/dL (0.2-1.3) 07/01/18 11:38 AST 21 IU/L (17-59) 07/01/18 11:38 ALT 26 IU/L (21-72) 07/01/18 11:38 Alkaline Phosphatase 66 U/L (38-126) 07/01/18 11:38 Total Protein 6.8 g/dL (6.3-8.2) 07/01/18 11:38 Albumin 3.8 g/dL (3.5-5.0) 07/01/18 11:38 Globulin 3.0 g/dL (1.7-4.1) 07/01/18 11:38 Albumin/Globulin Ratio 1.3 (1.0-2.8) 07/01/18 11:38 Prostate Specific Ag 2.750 ng/mL (0.10-4.00) 07/01/18 11:38 Testosterone Level 212.0 ng/dL (71.8-623) 07/01/18 11:38 Assessment and Plan (1) Prostate cancer Stage IIIC (ypT3, pN0 M0), GS 4+3, prostate adenocarcinoma status post robotic prostatectomy after a brief 5 months of treatment with Lupron. Postoperatively patient has a slowly rising PSA level suspicious for possible biochemical relapse. Today, I discussed with the patient about initiating androgen deprivation therapy and salvage radiation treatment. And patient is very much uncertain about whether he should proceed with salvage radiation treatment or not. As I mentioned in the history of present illness, patient was asking if there is no imaging evidence of disease recurrence or metastasis, how do we know where to irradiate. It is more or less a guess work at this moment. In addition patient is also wiling to start androgen deprivation therapy yet. Patient would like to get a second opinion from best places. I talked about the [facility] versus [place] [facility] versus [facility]. Eventually patient elected to go to [facility] for further evaluation. Plan: 1. Second opinion at [facility]/ 2. RTC in 6 weeks for follow up.
--- NOTE | 2018-08-13 11:56 | ONC.PN ---
PN -Subjective Interval history: New year's tona, he was kicked by his horse at the left upper back, no fracture on X-ray. He is complaining of left sided back pain. No other new events. On 08/06/2018. he was evaluated by Dr. Deacon Pat at [facility]. Dr. Pat recommended fluciclovin scan to evaluate for metastatic disease. If no distant spread, will likely recommend EBRT + short course ADT. Oncological History Mr. Kapadia is a 78-year-old gentleman with long standing history of LUTS. He was found to have an elevated PSA of 5.98 on 09/21/2012. By 07/18/2015, PSA had risen to 9.34. On 08/23/2015, he underwent prostate biopsy that showed GS 4+3 prostate cancer. He initially planned to receive EBRT with protons and was initiated neoadjuvant Lupron. After 5 months, he changed his mind and instead underwent prostatectomy on 03/28/2016. Surgical pathology showed GS 4+3, stage IIIC (ypT3 pN0 M0) carcinoma of the prostate involving 15% of entire gland with bilateral direct extension into seminal vesicles. Margins were negative. Twelve lymph nodes were removed and all were negative. Post-operatively, his PSA level nadired at 0.01 on 05/12/2016 and then began to rise. His PSA levels were 0.24 on 01/16/2017, 1.48 on 01/22/2018, 2.23 on 04/26/2018, 2.75 on 07/01/2018. Bone scan on 05/26/2018 showed degenerative changes and old compression fractures. Metastatic disease could not be ruled out. CT on 05/26/2018 showed no findings to suggest metastasis. Pelvic MRI on 06/28/2018 showed no evidence of metastatic disease. - Additional ROS All systems PM: reviewed and no additional remarkable complaints except as stated Home Medications and Allergies Home Medications Medication Instructions Recorded Confirmed Type sildenafil [Viagra] 100 mg PO 3 X WEEK PRN #0 04/18/17 06/10/18 History [GARLIC OIL] 1 cap PO QDAY #0 08/13/17 06/10/18 History calcium carbonate-vitamin D3 1 tab PO QDAY #0 08/13/17 06/10/18 History [Oyster Shell Calcium-Vit D3] zinc gluconate 1 tab PO QDAY #0 08/13/17 06/10/18 History ibuprofen [Advil] 400 mg PO Q6HP PRN #0 08/27/17 06/10/18 History Allergies Allergy/AdvReac Type Severity Reaction Status Date / Time timolol Allergy Verified 07/26/18 19:52 fentanyl AdvReac Verified 07/26/18 19:52 Exam Vital signs: Last Vital Signs Temp 97.7 F 08/13/18 12:04 Pulse 65 08/13/18 12:04 Resp 18 08/13/18 12:04 BP 136/81 08/13/18 12:04 Pulse Ox 99 08/13/18 12:04 ECOG 1 Narrative: Constitutional: WDWN, NAD, average body habitus, well groomed, pleasant and cooperative. HEENT: NCAT, EOMI, PERRLA, anicteric sclera, no hearing difficulty; Oral mucus membrane moist and without ulcers. Neck: Supple, symmetrical, and tracheal midline; No palpable thyromegaly and no palpable lymph nodes. Respiratory: No use of accessory muscles. Clear to auscultation, and no wheezes or rales or rubs. Cardiovascular: Regular rate and rhythm, S1 and S2 normal, no murmurs gallops or rubs. No JVD. No pitting edema of lower extremities. Abdomen: Soft, nontender, non-distended, bowel sounds normal, no palpable organomegaly, no hernia, no palpable masses. Lower extremities: No palpable pedal edema. Lymphatic: no palpable lymph nodes in the neck, axillae, or groins. Musculoskeletal: normal gait and station, no clubbing, no cyanosis, no pitting edema. Skin: no rashes, no ulcers, no petechiae Neurological: Awake and alert and oriented x3. CN II-XII grossly intact. No focal motor or sensory deficit. Psychiatric: Good judgment, good insight, normal affect, normal thought process, cooperative, no depression, no anxiety. Results - Labs Laboratory Last Values WBC 4.7 X10^3/uL (4.5-11.0) 07/01/18 11:38 RBC 4.38 X10^6/uL (4.5-5.9) L 07/01/18 11:38 Hgb 14.6 g/dL (13.5-17.5) 07/01/18 11:38 Hct 43.6 % (41-53) 07/01/18 11:38 MCV 99.6 fL (80-100) 07/01/18 11:38 MCH 33.4 PG (26-34) 07/01/18 11:38 MCHC 33.5 % (30-36) 07/01/18 11:38 RDW 12.9 % (11.6-14.8) 07/01/18 11:38 Plt Count 242 X10^3/uL (150-400) 07/01/18 11:38 Neut % (Auto) 78.5 % (50-75) H 07/01/18 11:38 Lymph % (Auto) 9.1 % (25-40) L 07/01/18 11:38 [place] % (Auto) 10.0 % (3-14) 07/01/18 11:38 Eos % (Auto) 2.0 % (2-4) 07/01/18 11:38 Baso % (Auto) 0.4 % (0-2) 07/01/18 11:38 Neut # (Auto) 3700 /uL (4659-5977) 07/01/18 11:38 Sodium 141 mmol/L (137-145) 07/01/18 11:38 Potassium 4.2 mmol/L (3.4-5.1) 07/01/18 11:38 Chloride 104 mmol/L (98-107) 07/01/18 11:38 Carbon Dioxide 28 mmol/L (22-32) 07/01/18 11:38 BUN 19 mg/dL (9-20) 07/01/18 11:38 Creatinine 1.10 mg/dL (0.66-1.25) 07/01/18 11:38 Estimated GFR > 60.0 mL/min (>60) 07/01/18 11:38 BUN/Creatinine Ratio 17.3 (6-22) 07/01/18 11:38 Glucose 119 mg/dL (80-110) H 07/01/18 11:38 Calcium 8.6 mg/dL (8.4-10.2) 07/01/18 11:38 Total Bilirubin 0.3 mg/dL (0.2-1.3) 07/01/18 11:38 AST 21 IU/L (17-59) 07/01/18 11:38 ALT 26 IU/L (21-72) 07/01/18 11:38 Alkaline Phosphatase 66 U/L (38-126) 07/01/18 11:38 Total Protein 6.8 g/dL (6.3-8.2) 07/01/18 11:38 Albumin 3.8 g/dL (3.5-5.0) 07/01/18 11:38 Globulin 3.0 g/dL (1.7-4.1) 07/01/18 11:38 Albumin/Globulin Ratio 1.3 (1.0-2.8) 07/01/18 11:38 Prostate Specific Ag 2.750 ng/mL (0.10-4.00) 07/01/18 11:38 Testosterone Level 212.0 ng/dL (71.8-623) 07/01/18 11:38 Assessment and Plan (1) Prostate cancer Assessment: Stage IIIC (ypT3, pN0 M0), GS 4+3, prostate adenocarcinoma status post robotic prostatectomy after a brief 5 months of treatment with Lupron. Postoperatively patient has a slowly rising PSA level suspicious for possible biochemical relapse. After his visit with me, patient has been followed at [facility] for second opinion by Dr. Pat who ordered a fluciclovin scan for further evaluation of possible distant metastasis. The results are still pending. I talked with the patient that he should continue follow-up with Dr. Pat and I completely agree that the patient probably will need external beam radiotherapy with short course of androgen deprivation therapy. Plan: 1. Follow up with Dr. Pat at [facility]/ 2. RTC in 3 months for follow up, repeat CBC, CMP, PSA and T.
[2018-08-13 12:04] VITALS: BP 136/81; PULSE 65; RESP 18; TEMP 36.5; O2SAT 99
--- NOTE | 2018-08-13 12:04 | P.PNONC_ITS ---
PN -Subjective Interval history: New year's tona, he was kicked by his horse at the left upper back, no fracture on X-ray. He is complaining of left sided back pain. No other new events. On 05/2019. he was evaluated by Dr. Deacon Pat at [facility]. Dr. Pat recommended fluciclovin scan to evaluate for metastatic disease. If no distant spread, will likely recommend EBRT + short course ADT. Oncological History Mr. Kapadia is a 78-year-old gentleman with long standing history of LUTS. He was found to have an elevated PSA of 5.98 on 09/21/2012. By 07/18/2015, PSA had risen to 9.34. On 08/23/2015, he underwent prostate biopsy that showed GS 4+3 prostate cancer. He initially planned to receive EBRT with protons and was initiated neoadjuvant Lupron. After 5 months, he changed his mind and instead underwent prostatectomy on 03/28/2016. Surgical pathology showed GS 4+3, stage IIIC (ypT3 pN0 M0) carcinoma of the prostate involving 15% of entire gland with bilateral direct extension into seminal vesicles. Margins were negative. Twelve lymph nodes were removed and all were negative. Post-operatively, his PSA level nadired at 0.01 on 05/12/2016 and then began to rise. His PSA levels were 0.24 on 01/16/2017, 1.48 on 01/22/2018, 2.23 on 04/26/2018, 2.75 on 07/01/2018. Bone scan on 05/26/2018 showed degenerative changes and old compression fractures. Metastatic disease could not be ruled out. CT on 05/26/2018 showed no findings to suggest metastasis. Pelvic MRI on 06/28/2018 showed no evidence of metastatic disease. - Additional ROS All systems PM: reviewed and no additional remarkable complaints except as stated Home Medications and Allergies Home Medications Medication Instructions Recorded Confirmed Type sildenafil [Viagra] 100 mg PO 3 X WEEK PRN #0 04/18/17 06/10/18 History [GARLIC OIL] 1 cap PO QDAY #0 08/13/17 06/10/18 History calcium carbonate-vitamin D3 1 tab PO QDAY #0 08/13/17 06/10/18 History [Oyster Shell Calcium-Vit D3] zinc gluconate 1 tab PO QDAY #0 08/13/17 06/10/18 History ibuprofen [Advil] 400 mg PO Q6HP PRN #0 08/27/17 06/10/18 History Allergies Allergy/AdvReac Type Severity Reaction Status Date / Time timolol Allergy Verified 07/26/18 19:52 fentanyl AdvReac Verified 07/26/18 19:52 Exam Vital signs: Last Vital Signs Temp 97.7 F 08/13/18 12:04 Pulse 65 08/13/18 12:04 Resp 18 08/13/18 12:04 BP 136/81 08/13/18 12:04 Pulse Ox 99 08/13/18 12:04 ECOG 1 Narrative: Constitutional: WDWN, NAD, average body habitus, well groomed, pleasant and cooperative. HEENT: NCAT, EOMI, PERRLA, anicteric sclera, no hearing difficulty; Oral mucus membrane moist and without ulcers. Neck: Supple, symmetrical, and tracheal midline; No palpable thyromegaly and no palpable lymph nodes. Respiratory: No use of accessory muscles. Clear to auscultation, and no wheezes or rales or rubs. Cardiovascular: Regular rate and rhythm, S1 and S2 normal, no murmurs gallops or rubs. No JVD. No pitting edema of lower extremities. Abdomen: Soft, nontender, non-distended, bowel sounds normal, no palpable organomegaly, no hernia, no palpable masses. Lower extremities: No palpable pedal edema. Lymphatic: no palpable lymph nodes in the neck, axillae, or groins. Musculoskeletal: normal gait and station, no clubbing, no cyanosis, no pitting edema. Skin: no rashes, no ulcers, no petechiae Neurological: Awake and alert and oriented x3. CN II-XII grossly intact. No focal motor or sensory deficit. Psychiatric: Good judgment, good insight, normal affect, normal thought process , cooperative, no depression, no anxiety. Results - Labs Laboratory Last Values WBC 4.7 X10^3/uL (4.5-11.0) 07/01/18 11:38 RBC 4.38 X10^6/uL (4.5-5.9) L 07/01/18 11:38 Hgb 14.6 g/dL (13.5-17.5) 07/01/18 11:38 Hct 43.6 % (41-53) 07/01/18 11:38 MCV 99.6 fL (80-100) 07/01/18 11:38 MCH 33.4 PG (26-34) 07/01/18 11:38 MCHC 33.5 % (30-36) 07/01/18 11:38 RDW 12.9 % (11.6-14.8) 07/01/18 11:38 Plt Count 242 X10^3/uL (150-400) 07/01/18 11:38 Neut % (Auto) 78.5 % (50-75) H 07/01/18 11:38 Lymph % (Auto) 9.1 % (25-40) L 07/01/18 11:38 [place] % (Auto) 10.0 % (3-14) 07/01/18 11:38 Eos % (Auto) 2.0 % (2-4) 07/01/18 11:38 Baso % (Auto) 0.4 % (0-2) 07/01/18 11:38 Neut # (Auto) 3700 /uL (7996-6087) 07/01/18 11:38 Sodium 141 mmol/L (137-145) 07/01/18 11:38 Potassium 4.2 mmol/L (3.4-5.1) 07/01/18 11:38 Chloride 104 mmol/L (98-107) 07/01/18 11:38 Carbon Dioxide 28 mmol/L (22-32) 07/01/18 11:38 BUN 19 mg/dL (9-20) 07/01/18 11:38 Creatinine 1.10 mg/dL (0.66-1.25) 07/01/18 11:38 Estimated GFR > 60.0 mL/min (>60) 07/01/18 11:38 BUN/Creatinine Ratio 17.3 (6-22) 07/01/18 11:38 Glucose 119 mg/dL (80-110) H 07/01/18 11:38 Calcium 8.6 mg/dL (8.4-10.2) 07/01/18 11:38 Total Bilirubin 0.3 mg/dL (0.2-1.3) 07/01/18 11:38 AST 21 IU/L (17-59) 07/01/18 11:38 ALT 26 IU/L (21-72) 07/01/18 11:38 Alkaline Phosphatase 66 U/L (38-126) 07/01/18 11:38 Total Protein 6.8 g/dL (6.3-8.2) 07/01/18 11:38 Albumin 3.8 g/dL (3.5-5.0) 07/01/18 11:38 Globulin 3.0 g/dL (1.7-4.1) 07/01/18 11:38 Albumin/Globulin Ratio 1.3 (1.0-2.8) 07/01/18 11:38 Prostate Specific Ag 2.750 ng/mL (0.10-4.00) 07/01/18 11:38 Testosterone Level 212.0 ng/dL (71.8-623) 07/01/18 11:38 Assessment and Plan (1) Prostate cancer Assessment: Stage IIIC (ypT3, pN0 M0), GS 4+3, prostate adenocarcinoma status post robotic prostatectomy after a brief 5 months of treatment with Lupron. Postoperatively patient has a slowly rising PSA level suspicious for possible biochemical relapse. After his visit with me, patient has been followed at [facility] for second opinion by Dr. Pat who ordered a fluciclovin scan for further evaluation of possible distant metastasis. The results are still pending. I talked with the patient that he should continue follow-up with Dr. Pat and I completely agree that the patient probably will need external beam radiotherapy with short course of androgen deprivation therapy. Plan: 1. Follow up with Dr. Pat at [facility]/ 2. RTC in 3 months for follow up, repeat CBC, CMP, PSA and T.
[2018-10-07 16:27] VITALS: BP 136/88; PULSE 80; RESP 18; TEMP 36.4; O2SAT 96
--- NOTE | 2018-10-07 16:32 | ONC.PN ---
PN -Subjective Interval history: On 08/12/2018 patient underwent Fluciclovine PET which showed nodular Fluciclovine uptate within the prostate bed corresponding to areas of enhancement on MRI dated 06/28/2018, Fluciclovine-avid right external and internal iliac station lymph nodes as well as a left common iliac station lymph node consistent with disease involvement. In addition, multifocal areas of Fluciclovine uptake in the osseous structures are associated with fractures, likely reactive. No definite features suggestive of pathological fractures are identified. Dr. Pat recommended either intermitten ADT or radiation + ADT. He was then referred to and was evaluated by Dr. Sanchez on 09/10/2018. The LL discussed multiple options including salvage radiotherapy with ADT or upfront ADT treatment for a short period of time with re-visit to discuss salvage radiotherapy. Patient himself has not decided yet. Oncological History Mr. Kapadia is a 78-year-old gentleman with long standing history of LUTS. He was found to have an elevated PSA of 5.98 on 09/21/2012. By 07/18/2015, PSA had risen to 9.34. On 08/23/2015, he underwent prostate biopsy that showed GS 4+3 prostate cancer. He initially planned to receive EBRT with protons and was initiated neoadjuvant Lupron. After 5 months, he changed his mind and instead underwent prostatectomy on 03/28/2016. Surgical pathology showed GS 4+3, stage IIIC (ypT3 pN0 M0) carcinoma of the prostate involving 15% of entire gland with bilateral direct extension into seminal vesicles. Margins were negative. Twelve lymph nodes were removed and all were negative. Post-operatively, his PSA level nadired at 0.01 on 05/12/2016 and then began to rise. His PSA levels were 0.24 on 01/16/2017, 1.48 on 01/22/2018, 2.23 on 04/26/2018, 2.75 on 07/01/2018. Bone scan on 05/26/2018 showed degenerative changes and old compression fractures. Metastatic disease could not be ruled out. CT on 05/26/2018 showed no findings to suggest metastasis. Pelvic MRI on 06/28/2018 showed no evidence of metastatic disease. - Patient Self-Reported Symptoms SR Constitution: Fatigue/Malaise - Additional ROS All systems PM: reviewed and no additional remarkable complaints except as stated Home Medications and Allergies Home Medications Medication Instructions Recorded Confirmed Type sildenafil [Viagra] 100 mg PO 3 X WEEK PRN #0 04/18/17 06/10/18 History [GARLIC OIL] 1 cap PO QDAY #0 08/13/17 06/10/18 History calcium carbonate-vitamin D3 1 tab PO QDAY #0 08/13/17 06/10/18 History [Oyster Shell Calcium-Vit D3] zinc gluconate 1 tab PO QDAY #0 08/13/17 06/10/18 History ibuprofen [Advil] 400 mg PO Q6HP PRN #0 08/27/17 06/10/18 History Allergies Allergy/AdvReac Type Severity Reaction Status Date / Time timolol Allergy Verified 07/26/18 19:52 fentanyl AdvReac Verified 07/26/18 19:52 Exam Vital signs: Last Vital Signs Temp 97.6 F 10/07/18 16:27 Pulse 80 10/07/18 16:27 Resp 18 10/07/18 16:27 BP 136/88 10/07/18 16:27 Pulse Ox 96 10/07/18 16:27 ECOG 1 Narrative: Constitutional: WDWN, NAD, average body habitus, well groomed, pleasant and cooperative. HEENT: NCAT, EOMI, PERRLA, anicteric sclera, no hearing difficulty; Oral mucus membrane moist and without ulcers. Neck: Supple, symmetrical, and tracheal midline; No palpable thyromegaly and no palpable lymph nodes. Respiratory: No use of accessory muscles. Clear to auscultation, and no wheezes or rales or rubs. Cardiovascular: Regular rate and rhythm, S1 and S2 normal, no murmurs gallops or rubs. No JVD. No pitting edema of lower extremities. Abdomen: Soft, nontender, non-distended, bowel sounds normal, no palpable organomegaly, no hernia, no palpable masses. Lower extremities: No palpable pedal edema. Lymphatic: no palpable lymph nodes in the neck, axillae Musculoskeletal: normal gait and station, no clubbing, no cyanosis, no pitting edema. Neurological: Awake and alert and oriented x3. CN II-XII grossly intact. No focal motor or sensory deficit. Psychiatric: Good judgment, good insight, normal affect, normal thought process, cooperative, no depression, no anxiety. Results - Labs Laboratory Last Values WBC 4.7 X10^3/uL (4.5-11.0) 07/01/18 11:38 RBC 4.38 X10^6/uL (4.5-5.9) L 07/01/18 11:38 Hgb 14.6 g/dL (13.5-17.5) 07/01/18 11:38 Hct 43.6 % (41-53) 07/01/18 11:38 MCV 99.6 fL (80-100) 07/01/18 11:38 MCH 33.4 PG (26-34) 07/01/18 11:38 MCHC 33.5 % (30-36) 07/01/18 11:38 RDW 12.9 % (11.6-14.8) 07/01/18 11:38 Plt Count 242 X10^3/uL (150-400) 07/01/18 11:38 Neut % (Auto) 78.5 % (50-75) H 07/01/18 11:38 Lymph % (Auto) 9.1 % (25-40) L 07/01/18 11:38 [place] % (Auto) 10.0 % (3-14) 07/01/18 11:38 Eos % (Auto) 2.0 % (2-4) 07/01/18 11:38 Baso % (Auto) 0.4 % (0-2) 07/01/18 11:38 Neut # (Auto) 3700 /uL (6015-1071) 07/01/18 11:38 Sodium 141 mmol/L (137-145) 07/01/18 11:38 Potassium 4.2 mmol/L (3.4-5.1) 07/01/18 11:38 Chloride 104 mmol/L (98-107) 07/01/18 11:38 Carbon Dioxide 28 mmol/L (22-32) 07/01/18 11:38 BUN 19 mg/dL (9-20) 07/01/18 11:38 Creatinine 1.10 mg/dL (0.66-1.25) 07/01/18 11:38 Estimated GFR > 60.0 mL/min (>60) 07/01/18 11:38 BUN/Creatinine Ratio 17.3 (6-22) 07/01/18 11:38 Glucose 119 mg/dL (80-110) H 07/01/18 11:38 Calcium 8.6 mg/dL (8.4-10.2) 07/01/18 11:38 Total Bilirubin 0.3 mg/dL (0.2-1.3) 07/01/18 11:38 AST 21 IU/L (17-59) 07/01/18 11:38 ALT 26 IU/L (21-72) 07/01/18 11:38 Alkaline Phosphatase 66 U/L (38-126) 07/01/18 11:38 Total Protein 6.8 g/dL (6.3-8.2) 07/01/18 11:38 Albumin 3.8 g/dL (3.5-5.0) 07/01/18 11:38 Globulin 3.0 g/dL (1.7-4.1) 07/01/18 11:38 Albumin/Globulin Ratio 1.3 (1.0-2.8) 07/01/18 11:38 Prostate Specific Ag 2.750 ng/mL (0.10-4.00) 07/01/18 11:38 Testosterone Level 212.0 ng/dL (71.8-623) 07/01/18 11:38 Assessment and Plan (1) Prostate cancer Assessment: Stage IIIC (ypT3, pN0 M0), GS 4+3, prostate adenocarcinoma status post robotic prostatectomy after a brief 5 months of treatment with Lupron. Postoperatively patient has a slowly rising PSA level suspicious for possible biochemical relapse. He is currently being followed at [facility] by Dr. Gilmore and Dr. Sanchez. Prostate Axumin PET CT showed showed recurrence in the prostate phos a and pelvic lymph nodes. Multiple choices were discussed with the patient at [facility]: including intermittent androgen deprivation versus salvage radiotherapy with androgen deprivation therapy vs upfront androgen deprivation therapy followed by re-evaluation for salvage radiotherapy. Patient has not made up his mind yet. I talked with the patient and encouraged him continue to follow up at [facility] for further evaluation and treatment. Patient has already started androgen deprivation therapy with Lupron on 08/27/2018. I will tentatively schedule the next shot at [facility]. I will see the patient then and repeat CBC, CMP, PSA and testosterone. Plan: 1. Follow up with Dr. Pat & Dr. Sanchez at [facility] 2. RTC in November 2018 for Lupron 22.5 mg, CBC, CMP, PSA and T.
--- NOTE | 2018-10-07 16:43 | P.PNONC_ITS ---
PN -Subjective Interval history: On 08/12/2018 patient underwent Fluciclovine PET which showed nodular Fluciclovine uptate within the prostate bed corresponding to areas of enhancement on MRI dated 06/28/2018, Fluciclovine-avid right external and internal iliac station lymph nodes as well as a left common iliac station lymph node consistent with disease involvement. In addition, multifocal areas of Fluciclovine uptake in the osseous structures are associated with fractures, likely reactive. No definite features suggestive of pathological fractures are identified. Dr. Pat recommended either intermitten ADT or radiation + ADT. He was then referred to and was evaluated by Dr. Sanchez on 09/10/2018. The LL discussed multiple options including salvage radiotherapy with ADT or upfront ADT treatment for a short period of time with re-visit to discuss salvage radiotherapy. Patient himself has not decided yet. Oncological History Mr. Kapadia is a 78-year-old gentleman with long standing history of LUTS. He was found to have an elevated PSA of 5.98 on 09/21/2012. By 07/18/2015, PSA had risen to 9.34. On 08/23/2015, he underwent prostate biopsy that showed GS 4+3 prostate cancer. He initially planned to receive EBRT with protons and was initiated neoadjuvant Lupron. After 5 months, he changed his mind and instead underwent prostatectomy on 03/28/2016. Surgical pathology showed GS 4+3, stage IIIC (ypT3 pN0 M0) carcinoma of the prostate involving 15% of entire gland with bilateral direct extension into seminal vesicles. Margins were negative. Twelve lymph nodes were removed and all were negative. Post-operatively, his PSA level nadired at 0.01 on 05/12/2016 and then began to rise. His PSA levels were 0.24 on 01/16/2017, 1.48 on 01/22/2018, 2.23 on 04/26/2018, 2.75 on 07/01/2018. Bone scan on 05/26/2018 showed degenerative changes and old compression fractures. Metastatic disease could not be ruled out. CT on 05/26/2018 showed no findings to suggest metastasis. Pelvic MRI on 06/28/2018 showed no evidence of metastatic disease. - Patient Self-Reported Symptoms SR Constitution: Fatigue/Malaise - Additional ROS All systems PM: reviewed and no additional remarkable complaints except as stated Home Medications and Allergies Home Medications Medication Instructions Recorded Confirmed Type sildenafil [Viagra] 100 mg PO 3 X WEEK PRN #0 04/18/17 06/10/18 History [GARLIC OIL] 1 cap PO QDAY #0 08/13/17 06/10/18 History calcium carbonate-vitamin D3 1 tab PO QDAY #0 08/13/17 06/10/18 History [Oyster Shell Calcium-Vit D3] zinc gluconate 1 tab PO QDAY #0 08/13/17 06/10/18 History ibuprofen [Advil] 400 mg PO Q6HP PRN #0 08/27/17 06/10/18 History Allergies Allergy/AdvReac Type Severity Reaction Status Date / Time timolol Allergy Verified 07/26/18 19:52 fentanyl AdvReac Verified 07/26/18 19:52 Exam Vital signs: Last Vital Signs Temp 97.6 F 10/07/18 16:27 Pulse 80 10/07/18 16:27 Resp 18 10/07/18 16:27 BP 136/88 10/07/18 16:27 Pulse Ox 96 10/07/18 16:27 ECOG 1 Narrative: Constitutional: WDWN, NAD, average body habitus, well groomed, pleasant and cooperative. HEENT: NCAT, EOMI, PERRLA, anicteric sclera, no hearing difficulty; Oral mucus membrane moist and without ulcers. Neck: Supple, symmetrical, and tracheal midline; No palpable thyromegaly and no palpable lymph nodes. Respiratory: No use of accessory muscles. Clear to auscultation, and no wheezes or rales or rubs. Cardiovascular: Regular rate and rhythm, S1 and S2 normal, no murmurs gallops or rubs. No JVD. No pitting edema of lower extremities. Abdomen: Soft, nontender, non-distended, bowel sounds normal, no palpable organomegaly, no hernia, no palpable masses. Lower extremities: No palpable pedal edema. Lymphatic: no palpable lymph nodes in the neck, axillae Musculoskeletal: normal gait and station, no clubbing, no cyanosis, no pitting edema. Neurological: Awake and alert and oriented x3. CN II-XII grossly intact. No focal motor or sensory deficit. Psychiatric: Good judgment, good insight, normal affect, normal thought process, cooperative, no depression, no anxiety. Results - Labs Laboratory Last Values WBC 4.7 X10^3/uL (4.5-11.0) 07/01/18 11:38 RBC 4.38 X10^6/uL (4.5-5.9) L 07/01/18 11:38 Hgb 14.6 g/dL (13.5-17.5) 07/01/18 11:38 Hct 43.6 % (41-53) 07/01/18 11:38 MCV 99.6 fL (80-100) 07/01/18 11:38 MCH 33.4 PG (26-34) 07/01/18 11:38 MCHC 33.5 % (30-36) 07/01/18 11:38 RDW 12.9 % (11.6-14.8) 07/01/18 11:38 Plt Count 242 X10^3/uL (150-400) 07/01/18 11:38 Neut % (Auto) 78.5 % (50-75) H 07/01/18 11:38 Lymph % (Auto) 9.1 % (25-40) L 07/01/18 11:38 [place] % (Auto) 10.0 % (3-14) 07/01/18 11:38 Eos % (Auto) 2.0 % (2-4) 07/01/18 11:38 Baso % (Auto) 0.4 % (0-2) 07/01/18 11:38 Neut # (Auto) 3700 /uL (1615-4580) 07/01/18 11:38 Sodium 141 mmol/L (137-145) 07/01/18 11:38 Potassium 4.2 mmol/L (3.4-5.1) 07/01/18 11:38 Chloride 104 mmol/L (98-107) 07/01/18 11:38 Carbon Dioxide 28 mmol/L (22-32) 07/01/18 11:38 BUN 19 mg/dL (9-20) 07/01/18 11:38 Creatinine 1.10 mg/dL (0.66-1.25) 07/01/18 11:38 Estimated GFR > 60.0 mL/min (>60) 07/01/18 11:38 BUN/Creatinine Ratio 17.3 (6-22) 07/01/18 11:38 Glucose 119 mg/dL (80-110) H 07/01/18 11:38 Calcium 8.6 mg/dL (8.4-10.2) 07/01/18 11:38 Total Bilirubin 0.3 mg/dL (0.2-1.3) 07/01/18 11:38 AST 21 IU/L (17-59) 07/01/18 11:38 ALT 26 IU/L (21-72) 07/01/18 11:38 Alkaline Phosphatase 66 U/L (38-126) 07/01/18 11:38 Total Protein 6.8 g/dL (6.3-8.2) 07/01/18 11:38 Albumin 3.8 g/dL (3.5-5.0) 07/01/18 11:38 Globulin 3.0 g/dL (1.7-4.1) 07/01/18 11:38 Albumin/Globulin Ratio 1.3 (1.0-2.8) 07/01/18 11:38 Prostate Specific Ag 2.750 ng/mL (0.10-4.00) 07/01/18 11:38 Testosterone Level 212.0 ng/dL (71.8-623) 07/01/18 11:38 Assessment and Plan (1) Prostate cancer Assessment: Stage IIIC (ypT3, pN0 M0), GS 4+3, prostate adenocarcinoma status post robotic prostatectomy after a brief 5 months of treatment with Lupron. Postoperatively patient has a slowly rising PSA level suspicious for possible biochemical relapse. He is currently being followed at [facility] by Dr. Gilmore and Dr. Sanchez. Prostate Axumin PET CT showed showed recurrence in the prostate phos a and pelvic lymph nodes. Multiple choices were discussed with the patient at [facility]: including intermittent androgen deprivation versus salvage radiotherapy with androgen deprivation therapy vs upfront androgen deprivation therapy followed by re- evaluation for salvage radiotherapy. Patient has not made up his mind yet. I talked with the patient and encouraged him continue to follow up at [facility] for further evaluation and treatment. Patient has already started androgen deprivation therapy with Lupron on 08/27/2018. I will tentatively schedule the next shot at [facility]. I will see the patient then and repeat CBC, CMP, PSA and testosterone. Plan: 1. Follow up with Dr. Pat & Dr. Sanchez at [facility] 2. RTC in November 2018 for Lupron 22.5 mg, CBC, CMP, PSA and T.
[2018-11-25 15:35] VITALS: BP 147/71; PULSE 79; RESP 18; TEMP 36.7; O2SAT 97
--- NOTE | 2018-11-25 15:57 | P.PNONC_ITS ---
PN -Subjective Interval history: Since his last visit with me about 3 months ago, patient apparently did not follow up with Dr. Sanchez or Dr. Pat. He did not get any radiation treatment. Clinically patient has been doing stable without any new complaints. Oncological History Mr. Kapadia is a 78-year-old gentleman with long standing history of LUTS. He was found to have an elevated PSA of 5.98 on 09/21/2012. By 07/18/2015, PSA had risen to 9.34. On 08/23/2015, he underwent prostate biopsy that showed GS 4+3 prostate cancer. He initially planned to receive EBRT with protons and was initiated neoadjuvant Lupron. After 5 months, he changed his mind and instead underwent prostatectomy on 03/28/2016. Surgical pathology showed GS 4+3, stage IIIC (ypT3 pN0 M0) carcinoma of the prostate involving 15% of entire gland with bilateral direct extension into seminal vesicles. Margins were negative. Twelve lymph nodes were removed and all were negative. Post-operatively, his PSA level nadired at 0.01 on 05/12/2016 and then began to rise. His PSA levels were 0.24 on 01/16/2017, 1.48 on 01/22/2018, 2.23 on 04/26/2018, 2.75 on 07/01/2018. Bone scan on 05/26/2018 showed degenerative changes and old compression fractures. Metastatic disease could not be ruled out. CT on 05/26/2018 showed no findings to suggest metastasis. Pelvic MRI on 06/28/2018 showed no evidence of metastatic disease. On 08/12/2018 patient underwent Fluciclovine PET which showed nodular Fluciclovine uptate within the prostate bed corresponding to areas of enhancement on MRI dated 06/28/2018, Fluciclovine-avid right external and internal iliac station lymph nodes as well as a left common iliac station lymph node consistent with disease involvement. In addition, multifocal areas of Fluciclovine uptake in the osseous structures are associated with fractures, likely reactive. No definite features suggestive of pathological fractures are i dentified. Dr. Pat recommended either intermitten ADT or radiation + ADT. He was then referred to and was evaluated by Dr. Sanchez on 09/10/2018. The [facility] discussed multiple options including salvage radiotherapy with ADT or upfront ADT treatment for a short period of time with re-visit to discuss salvage radiotherapy. - Patient Self-Reported Symptoms SR Constitution: Fatigue/Malaise SR ears, nose, mouth, throat issues: Ears ringing, Mouth sores SR Cardiovascular issues: Shortness of breath with activity or lying flat SR Skin issues: Skin color changes SR Gastrointestinal issues: Abdominal pain SR Genitourinary issues: Frequent urination, Sexual difficulties SR Musculoskeletal issues: Muscle weakness, Back or neck pain SR Neuro issues: Head injury SR Hematologic issues: Bleeding/bruising - Additional ROS All systems PM: reviewed and no additional remarkable complaints except as stated Home Medications and Allergies Home Medications Medication Instructions Recorded Confirmed Type sildenafil [Viagra] 100 mg PO 3 X WEEK PRN #0 04/18/17 11/25/18 History [GARLIC OIL] 1 cap PO QDAY #0 08/13/17 11/25/18 History calcium carbonate-vitamin D3 1 tab PO QDAY #0 08/13/17 11/25/18 History [Oyster Shell Calcium-Vit D3] zinc gluconate 1 tab PO QDAY #0 08/13/17 11/25/18 History ibuprofen [Advil] 400 mg PO Q6HP PRN #0 08/27/17 11/25/18 History Allergies Allergy/AdvReac Type Severity Reaction Status Date / Time timolol Allergy Verified 07/26/18 19:52 fentanyl AdvReac Verified 07/26/18 19:52 Exam Vital signs: Vital Signs Temp Pulse Resp BP Pulse Ox 11/25/18 15:35 98.1 F 79 18 147/71 H 97 Intake and Output 11/24/18 11/25/18 11/25/18 23:59 07:59 15:59 Other: Weight 76.8 kg Patient Weight 11/25/18 23:59 Weight 76.8 kg ECOG 1 Narrative: Constitutional: WDWN, NAD, average body habitus, well groomed, pleasant and cooperative. HEENT: NCAT, EOMI, PERRLA, anicteric sclera, no hearing difficulty; Oral mucus membrane moist and without ulcers. Neck: Supple, symmetrical, and tracheal midline; No palpable thyromegaly and no palpable lymph nodes. Respiratory: No use of accessory muscles. Clear to auscultation, and no wheezes or rales or rubs. Cardiovascular: Regular rate and rhythm, S1 and S2 normal, no murmurs gallops or rubs. No JVD. No pitting edema of lower extremities. Abdomen: Soft, nontender, non-distended, bowel sounds normal, no palpable organomegaly, no hernia, no palpable masses. Lower extremities: No palpable pedal edema. Lymphatic: no palpable lymph nodes in the neck, axillae Musculoskeletal: normal gait and station, no clubbing, no cyanosis, no pitting edema. Neurological: Awake and alert and oriented x3. CN II-XII grossly intact. No focal motor or sensory deficit. Psychiatric: Good judgment, good insight, normal affect, normal thought process, cooperative, anxious. Results - Labs Laboratory Last Values WBC 4.7 X10^3/uL (4.5-11.0) 07/01/18 11:38 RBC 4.38 X10^6/uL (4.5-5.9) L 07/01/18 11:38 Hgb 14.6 g/dL (13.5-17.5) 07/01/18 11:38 Hct 43.6 % (41-53) 07/01/18 11:38 MCV 99.6 fL (80-100) 07/01/18 11:38 MCH 33.4 PG (26-34) 07/01/18 11:38 MCHC 33.5 % (30-36) 07/01/18 11:38 RDW 12.9 % (11.6-14.8) 07/01/18 11:38 Plt Count 242 X10^3/uL (150-400) 07/01/18 11:38 Neut % (Auto) 78.5 % (50-75) H 07/01/18 11:38 Lymph % (Auto) 9.1 % (25-40) L 07/01/18 11:38 [place] % (Auto) 10.0 % (3-14) 07/01/18 11:38 Eos % (Auto) 2.0 % (2-4) 07/01/18 11:38 Baso % (Auto) 0.4 % (0-2) 07/01/18 11:38 Neut # (Auto) 3700 /uL (7423-1806) 07/01/18 11:38 Sodium 141 mmol/L (137-145) 07/01/18 11:38 Potassium 4.2 mmol/L (3.4-5.1) 07/01/18 11:38 Chloride 104 mmol/L (98-107) 07/01/18 11:38 Carbon Dioxide 28 mmol/L (22-32) 07/01/18 11:38 BUN 19 mg/dL (9-20) 07/01/18 11:38 Creatinine 1.10 mg/dL (0.66-1.25) 07/01/18 11:38 Estimated GFR > 60.0 mL/min (>60) 07/01/18 11:38 BUN/Creatinine Ratio 17.3 (6-22) 07/01/18 11:38 Glucose 119 mg/dL (80-110) H 07/01/18 11:38 Calcium 8.6 mg/dL (8.4-10.2) 07/01/18 11:38 Total Bilirubin 0.3 mg/dL (0.2-1.3) 07/01/18 11:38 AST 21 IU/L (17-59) 07/01/18 11:38 ALT 26 IU/L (21-72) 07/01/18 11:38 Alkaline Phosphatase 66 U/L (38-126) 07/01/18 11:38 Total Protein 6.8 g/dL (6.3-8.2) 07/01/18 11:38 Albumin 3.8 g/dL (3.5-5.0) 07/01/18 11:38 Globulin 3.0 g/dL (1.7-4.1) 07/01/18 11:38 Albumin/Globulin Ratio 1.3 (1.0-2.8) 07/01/18 11:38 Prostate Specific Ag 2.750 ng/mL (0.10-4.00) 07/01/18 11:38 Testosterone Level 212.0 ng/dL (71.8-623) 07/01/18 11:38 Assessment and Plan (1) Prostate cancer Assessment: Stage IIIC (ypT3, pN0 M0), GS 4+3, prostate adenocarcinoma status post robotic prostatectomy after a brief 5 months of treatment with Lupron. Postoperatively patient has a slowly rising PSA level suspicious for possible biochemical relapse. He is currently being followed at [facility] by Dr. Gilmore and Dr. Sanchez. Prostate Axumin PET CT showed showed recurrence in the prostate foci and or pelvic lymph nodes. He is now getting ADT with Lupron started on 08/27/2018. Plan: 1. Ok to proceed to Lupron injection today 2. Follow up with Dr. Pat & Dr. Sanchez at [facility]/ as scheduled 3. RTC in three months for Lupron 22.5 mg, CBC, CMP, PSA and T.
[2018-11-25] MEDS: LEUPROLIDE DEPOT [ELIGARD] 22.5 MG SYR SUBCUT (16:14)
[2019-02-08 14:31] LABS: Add Manual Diff / Slide Review NO; Basophils Absolute Auto 0 /uL (0-100); Basophils Percent Auto 0.6 % (0-2); Eosinophils Absolute Auto 100 /uL (0-450); Eosinophils Percent Auto 2.5 % (2-4); Hematocrit 43.5 % (41-53); Hemoglobin 14.3 g/dL (13.5-17.5); Lymphocytes Absolute Auto 600 /uL (1100-4500); Lymphocytes Percent Auto 11.3 % (25-40); Mean Corpuscular HGB Conc 32.8 % (30-36); Mean Corpuscular Volume 100.4 fL (80-100); Monocytes Absolute Auto 500 /uL (0-900); Monocytes Percent Auto 9.7 % (3-14); Neutrophils Absolute Auto 3900 /uL (1500-7000); Neutrophils Percent Auto 75.9 % (50-75); Platelet Count 244 X10^3/uL (150-400); Red Blood Cell Count 4.33 X10^6/uL (4.5-5.9); Red Cell Distribution Width 13.1 % (11.6-14.8); White Blood Cell Count 5.1 X10^3/uL (4.5-11.0)
[2019-02-08 14:45] LABS: Alanine Aminotransferase 21 IU/L (21-72); Albumin Globulin Ratio 1.3 (1.0-2.8); Alkaline Phosphatase 71 U/L (38-126); Aspartate Aminotransferase 24 IU/L (17-59); BUN Creatinine Ratio 26.4 (6-22); Bilirubin Total 0.4 mg/dL (0.2-1.3); Blood Urea Nitrogen 29 mg/dL (9-20); Calcium 9.1 mg/dL (8.4-10.2); Carbon Dioxide 28 mmol/L (22-32); Chloride 107 mmol/L (98-107); Estimated Glomerular Filt Rate > 60.0 mL/min (>60); Globulin 3.1 g/dL (1.7-4.1); Glucose 155 mg/dL (80-110); HEMOLYSIS < 15 (0-50); Potassium 4.8 mmol/L (3.4-5.1); Sodium 142 mmol/L (137-145); Total Protein 7.1 g/dL (6.3-8.2)
[2019-02-08 15:16] LABS: Prostate Specific Antigen 0.112 ng/mL (0.10-4.00)
[2019-02-08 15:18] LABS: Testosterone 16.4 ng/dL (71.8-623)
[2019-02-17 13:31] VITALS: BP 146/85; PULSE 55; RESP 16; TEMP 36.4; O2SAT 98
--- NOTE | 2019-02-17 13:33 | P.PNONC_ITS ---
PN -Subjective Interval history: Since his last visit with me about 3 months ago, patient apparently did not follow up with Dr. Sanchez or Dr. Pat. He did not get any radiation treatment. Clinically patient has been doing stable without any new complaints. He had a fall and sustained left carpal bone fracture. No other new events. Oncological History Mr. Kapadia is a 78-year-old gentleman with long standing history of LUTS. He was found to have an elevated PSA of 5.98 on 09/21/2012. By 07/18/2015, PSA had ri sen to 9.34. On 08/23/2015, he underwent prostate biopsy that showed GS 4+3 prostate cancer. He initially planned to receive EBRT with protons and was initiated neoadjuvant Lupron. After 5 months, he changed his mind and instead underwent prostatectomy on 03/28/2016. Surgical pathology showed GS 4+3, stage IIIC (ypT3 pN0 M0) carcinoma of the prostate involving 15% of entire gland with bilateral direct extension into seminal vesicles. Margins were negative. Twelve lymph nodes were removed and all were negative. Post-operatively, his PSA level nadired at 0.01 on 05/12/2016 and then began to rise. His PSA levels were 0.24 on 01/16/2017, 1.48 on 01/22/2018, 2.23 on 04/26/2018, 2.75 on 07/01/2018. Bone scan on 05/26/2018 showed degenerative changes and old compression fractures. Metastatic disease could not be ruled out. CT on 05/26/2018 showed no findings to suggest metastasis. Pelvic MRI on 06/28/2018 showed no evidence of metastatic disease. On 08/12/2018 patient underwent Fluciclovine PET which showed nodular Fluciclovine uptate within the prostate bed corresponding to areas of enhancement on MRI dated 06/28/2018, Fluciclovine-avid right external and internal iliac station lymph nodes as well as a left common iliac station lymph node consistent with disease involvement. In addition, multifocal areas of Fluciclovine uptake in the osseous structures are associated with fractures, likely reactive. No definite features suggestive of pathological fractures are identified. Dr. Pat recommended either intermitten ADT or radiation + ADT. He was then referred to and was evaluated by Dr. Sanchez on 09/10/2018. The Daniel discussed multiple options including salvage radiotherapy with ADT or upfront ADT treatment for a short period of time with re-visit to discuss salvage radiotherapy. - Patient Self-Reported Symptoms SR Constitution: Fatigue/Malaise SR ears, nose, mouth, throat issues: Ears ringing, Mouth sores SR Cardiovascular issues: Shortness of breath with activity or lying flat SR Skin issues: Skin color changes SR Gastrointestinal issues: Abdominal pain SR Genitourinary issues: Frequent urination, Sexual difficulties SR Musculoskeletal issues: Muscle weakness, Back or neck pain SR Neuro issues: Head injury SR Hematologic issues: Bleeding/bruising - Additional ROS All systems PM: reviewed and no additional remarkable complaints except as stated Home Medications and Allergies Home Medications Medication Instructions Recorded Confirmed Type sildenafil [Viagra] 100 mg PO 3 X WEEK PRN #0 04/18/17 02/17/19 History [GARLIC OIL] 1 cap PO QDAY #0 08/13/17 02/17/19 History calcium carbonate-vitamin D3 1 tab PO QDAY #0 08/13/17 02/17/19 History [Oyster Shell Calcium-Vit D3] zinc gluconate 1 tab PO QDAY #0 08/13/17 02/17/19 History ibuprofen [Advil] 400 mg PO Q6HP PRN #0 08/27/17 02/17/19 History Allergies Allergy/AdvReac Type Severity Reaction Status Date / Time timolol Allergy Verified 07/26/18 19:52 fentanyl AdvReac Verified 07/26/18 19:52 Exam Vital signs: Last Vital Signs Temp 97.6 F 02/17/19 13:31 Pulse 55 L 02/17/19 13:31 Resp 16 02/17/19 13:31 BP 146/85 H 02/17/19 13:31 Pulse Ox 98 02/17/19 13:31 ECOG 1 Narrative: Constitutional: WDWN, NAD, average body habitus, well groomed, pleasant and cooperative. HEENT: NCAT, EOMI, PERRLA, anicteric sclera, no hearing difficulty; Oral mucus membrane moist and without ulcers. Neck: Supple, symmetrical, and tracheal midline; No palpable thyromegaly and no palpable lymph nodes. Respiratory: No use of accessory muscles. Clear to auscultation, and no wheezes or rales or rubs. Cardiovascular: Regular rate and rhythm, S1 and S2 normal, no murmurs gallops or rubs. No JVD. No pitting edema of lower extremities. Abdomen: Soft, nontender, non-distended, bowel sounds normal, no palpable organomegaly, no hernia, no palpable masses. Lower extremities: No palpable pedal edema. Lymphatic: no palpable lymph nodes in the neck, axillae Musculoskeletal: normal gait and station, no clubbing, no cyanosis, no pitting edema. Neurological: Awake and alert and oriented x3. CN II-XII grossly intact. No focal motor or sensory deficit. Psychiatric: Good judgment, good insight, normal affect, normal thought process, cooperative, anxious. Results - Labs Laboratory Last Values WBC 5.1 X10^3/uL (4.5-11.0) 02/08/19 14:23 RBC 4.33 X10^6/uL (4.5-5.9) L 02/08/19 14:23 Hgb 14.3 g/dL (13.5-17.5) 02/08/19 14:23 Hct 43.5 % (41-53) 02/08/19 14:23 MCV 100.4 fL (80-100) H 02/08/19 14:23 MCH 33.0 PG (26-34) 02/08/19 14:23 MCHC 32.8 % (30-36) 02/08/19 14:23 RDW 13.1 % (11.6-14.8) 02/08/19 14:23 Plt Count 244 X10^3/uL (150-400) 02/08/19 14:23 Neut % (Auto) 75.9 % (50-75) H 02/08/19 14:23 Lymph % (Auto) 11.3 % (25-40) L 02/08/19 14:23 [place] % (Auto) 9.7 % (3-14) 02/08/19 14:23 Eos % (Auto) 2.5 % (2-4) 02/08/19 14:23 Baso % (Auto) 0.6 % (0-2) 02/08/19 14:23 Neut # (Auto) 3900 /uL (5710-4330) 02/08/19 14:23 Lymph # (Auto) 600 /uL (2605-3775) L 02/08/19 14:23 [place] # (Auto) 500 /uL (0-900) 02/08/19 14:23 Eos # (Auto) 100 /uL (0-450) 02/08/19 14:23 Baso # (Auto) 0 /uL (0-100) 02/08/19 14:23 Sodium 142 mmol/L (137-145) 02/08/19 14:23 Potassium 4.8 mmol/L (3.4-5.1) 02/08/19 14:23 Chloride 107 mmol/L (98-107) 02/08/19 14:23 Carbon Dioxide 28 mmol/L (22-32) 02/08/19 14:23 BUN 29 mg/dL (9-20) H 02/08/19 14:23 Creatinine 1.10 mg/dL (0.66-1.25) 02/08/19 14:23 Estimated GFR > 60.0 mL/min (>60) 02/08/19 14:23 BUN/Creatinine Ratio 26.4 (6-22) H 02/08/19 14:23 Glucose 155 mg/dL (80-110) H 02/08/19 14:23 Calcium 9.1 mg/dL (8.4-10.2) 02/08/19 14:23 Total Bilirubin 0.4 mg/dL (0.2-1.3) 02/08/19 14:23 AST 24 IU/L (17-59) 02/08/19 14:23 ALT 21 IU/L (21-72) 02/08/19 14:23 Alkaline Phosphatase 71 U/L (38-126) 02/08/19 14:23 Total Protein 7.1 g/dL (6.3-8.2) 02/08/19 14:23 Albumin 4.0 g/dL (3.5-5.0) 02/08/19 14:23 Globulin 3.1 g/dL (1.7-4.1) 02/08/19 14:23 Albumin/Globulin Ratio 1.3 (1.0-2.8) 02/08/19 14:23 Prostate Specific Ag 0.112 ng/mL (0.10-4.00) 02/08/19 14:23 Testosterone Level 16.4 ng/dL (71.8-623) L 02/08/19 14:23 Assessment and Plan (1) Prostate cancer Overview: Stage IIIC (ypT3, pN0 M0), GS 4+3, prostate adenocarcinoma status post robotic prostatectomy after a brief 5 months of treatment with Lupron. Postoperatively patient has a slowly rising PSA level suspicious for possible biochemical relapse. He is currently being followed at [facility] by Dr. Gilmore and Dr. Sanchez. Prostate Axumin PET CT showed recurrence in the prostate foci and/or pelvic lymph nodes. He is now getting ADT with Lupron started on 08/27/2018. Plan: 1. Ok to proceed to Lupron injection today 2. Follow up with Dr. Pat & Dr. Sanchez at [facility]/ as scheduled 3. RTC in three months for Lupron 22.5 mg, CBC, CMP, PSA and T.
[2019-02-17] MEDS: LEUPROLIDE DEPOT [ELIGARD] 22.5 MG SYR SUBCUT (14:08)
== END ==
PROVIDERS: PCP Family Medicine; Visit Provider Internal Medicine Hematology & Oncology
DX: C61 Malignant neoplasm of prostate (principal); R97.21 Rising PSA following treatment for malignant neoplasm of prostate
CPT/HCPCS: 36415; 80053; 84153; 84403; 85025; 96402; 99214; J9217

== ENCOUNTER 2019-05-07 07:55 | Emergency (ER) | payer MEDICARE, SELFPAY ==
[2019-05-07 08:20] VITALS: BP 148/65; PULSE 53; RESP 18; TEMP 36.5; O2SAT 98; BMI 26.6
--- NOTE | 2019-05-07 08:32 | DI.RAD.S_ITS ---
PROCEDURE: XR HIP W PEL IF DONE LT 2V INDICATIONS: fall TECHNIQUE: AP pelvis with lateral view(s) of the left hip(s). COMPARISON: [facility], CR, XR CLAVICLE LT, 05/07/2019, 8:32. [facility], MR, MR PELVIS WO/W CON, 06/28/2018, 18:54. [facility], CT, CT CHEST ABD PEL W CON, 05/26/2018, 9:02. FINDINGS: Bones: No fractures or dislocations. Pelvic ring appears intact. No suspicious bony lesions. There is moderate superior joint space narrowing seen of both hips, right worse than left, with associated remodeling changes with subchondral sclerosis and osteophyte formation. Age-appropriate lower lumbar spine degenerative changes are noted. Soft tissues: The visualized bowel gas pattern is normal. No suspicious soft tissue calcifications. IMPRESSION: No displaced fractures are seen on these plain films. Degenerative changes are seen, with moderate joint space narrowing of the hips, right worse than left. If there is focal tenderness, or other clinical concern for a fracture not seen on these images in this patient with a given history of trauma, please consider a dedicated CT or a short-term followup plain film series (in 1-2 weeks) for further evaluation. Dictated by: Alejo Dover M.D. on 05/07/2019 at 8:17 Approved by: Alejo Dover M.D. on 05/07/2019 at 8:18
--- NOTE | 2019-05-07 08:34 | DI.RAD.S_ITS ---
PROCEDURE: XR CLAVICLE LT INDICATIONS: fall TECHNIQUE: 2 views of the clavicle were acquired. COMPARISON: [facility], CR, XR CHEST 2V, 07/26/2018, 20:26. [facility], CR, XR HIP W PEL IF DONE LT 2V, 05/07/2019, 8:32. FINDINGS: Bones: No fractures or dislocations. No suspicious bony lesions. The visualized ribs are unremarkable. Degenerative changes are seen, including moderate subacromial spurring. Soft tissues: No suspicious soft tissue calcifications. The aorta is prominent and tortuous. The visualized lung demonstrates an unremarkable appearance. IMPRESSION: Degenerative changes, without acute fracture seen. If there is point tenderness (or other clinical suspicion for a fracture not seen on these images) then a dedicated CT could be considered for further evaluation, as clinically appropriate. Dictated by: Alejo Dover M.D. on 05/07/2019 at 8:12 Approved by: Alejo Dover M.D. on 05/07/2019 at 8:14
--- NOTE | 2019-05-07 08:45 | ED.FALL ---
HPI - Fall General Chief Complaint: Fall Stated Complaint: left collarbone/lt hip fell today Time Seen by Provider: 05/07/19 08:17 Source: patient Mode of arrival: Wheelchair Limitations: no limitations History of Present Illness HPI Narrative: 79-year-old male. Not on anticoagulation here for evaluation of injuries that he sustained when he states that he had a mechanical fall this morning. He states he lost his balance and fell backwards over the arm of his couch. He did not hit his head. There is no loss of consciousness. Has had left shoulder and left hip pain since then. He states that now his left shoulder is better however his left hip hurts whenever he tries to walk. Related Data Home Medications Medication Instructions Recorded Confirmed sildenafil [Viagra] 100 mg PO 3 X WEEK PRN #0 04/18/17 02/17/19 [GARLIC OIL] 1 cap PO QDAY #0 08/13/17 02/17/19 calcium carbonate-vitamin D3 1 tab PO QDAY #0 08/13/17 02/17/19 [Oyster Shell Calcium-Vit D3] zinc gluconate 1 tab PO QDAY #0 08/13/17 02/17/19 ibuprofen [Advil] 400 mg PO Q6HP PRN #0 08/27/17 02/17/19 Previous Rx's Medication Instructions Recorded hydrocodone-acetaminophen [Stopover] 1 tab PO Q4-6H PRN #10 tab 05/07/19 Allergies Allergy/AdvReac Type Severity Reaction Status Date / Time timolol Allergy Verified 05/07/19 08:48 fentanyl AdvReac Verified 05/07/19 08:48 Review of Systems Constitutional Constitutional: Denies fatigue, Denies frequent falls and Denies headache(s) ENT Ears, Nose, Mouth, and Throat: Denies headache(s) Cardiovascular Cardiovascular: Denies chest pain and Denies dyspnea Respiratory Respiratory: Denies dyspnea Gastrointestinal Gastrointestinal: Denies abdominal pain Musculoskeletal Comments: Left hip and left shoulder pain Integumentary/Breasts Skin/Breast: Denies lesions and Denies rash Neurologic Neurologic: Denies behavioral changes, Denies frequent falls and Denies headache(s) Psychiatric Psychiatric: Denies behavioral changes Endocrine Endocrine: Denies fatigue Hematologic/Lymphatic Hematologic/Lymphatic: Denies easy bleeding and Denies easy bruising Patient History Medical/Surgical History Medical History Prostate cancer (Inactive) Social History Smoking Status: Never smoker Family/Social History Social History Smoking Status: Never smoker alcohol intake frequency: 0-2 drinks per day Substance Use Type: does not use Exam Initial Vital Signs Initial Vital Signs: Vital Signs Temperature 97.7 F 05/07/19 08:20 Pulse Rate 53 L 05/07/19 08:20 Respiratory Rate 18 05/07/19 08:20 Blood Pressure 148/65 H 05/07/19 08:20 Pulse Oximetry 98 05/07/19 08:20 Chest Chest: normal inspection of the chest Resp Effort & Inspection: normal respiratory effort Auscultation: clear to auscultation bilaterally Cardio Rate: regular rate Rhythm: regular rhythm Skin Lesions: no lesions Rashes: no rashes Neuro General: alert and awake Cognition: normal cognition Speech: speech normal Extrem Other: Patient with full range of motion of left shoulder. No tenderness to palpation over the clavicle. Patient with no tenderness to palpation left hip. Able to flex and extend passively without any pain. Patient does have pain with active flexion. Rest of the left leg unremarkable. Right leg unremarkable. Right arm unremarkable Psych Appearance: grossly normal and well kempt Course Orders Ordered: ED Orders 05/07/19 08:32 XR hip w pel if done LT 2V Stat 05/07/19 08:34 XR clavicle LT Stat 05/07/19 11:33 CT pelvis wo con Stat Discontinued Medications Hydrocodone Bitart/Acetaminophen (Stopover 5/325) 1 tab PO NOW ONE Stop: 05/07/19 09:16 Last Admin: 05/07/19 09:35 Dose: 1 tab Documented by: SILVANO Ketorolac Tromethamine (Toradol) 30 mg IM NOW ONE Stop: 05/07/19 11:35 Last Admin: 05/07/19 11:42 Dose: 30 mg Documented by: SILVANO Vital Signs Vital signs: Vital Signs - 8 hr 05/07/19 08:20 05/07/19 09:40 05/07/19 11:03 Temperature 97.7 F Pulse Rate 53 L 55 L 51 L Respiratory Rate 18 20 15 Blood Pressure 148/65 H Blood Pressure [Left Arm] 137/65 131/65 Pulse Oximetry 98 97 96 05/07/19 11:46 Temperature 97.4 F L Pulse Rate Respiratory Rate Blood Pressure Blood Pressure [Left Arm] Pulse Oximetry MDM - Fall Lab Data Attestation: I reviewed the patient's lab results. Labs: Urine Dip Bedside Urine Glucose Negative Bedside Urine Bilirubin - Negative Bedside Urine Ketone +/- 5 Urine Specific [employer] 1.025 Bedside Urine Occult Blood - Negative Bedside Urine pH 5.0 Bedside Urine Protein +/- 15 Bedside Urine Urobilinogen - Negative Bedside Urine Nitrite - Negative Bedside Urine Leukocytes - Negative Esterase Imaging Data X-ray clavicle: Radiologist's impression: [address] [address] XRay Report Signed Patient: Tristan Kapadia GMR#: [id number] : 1940Acct:[id number] Age/Sex: 79 / MDate of Service: 05/07/19 Loc: ED Accession Number: [id number] Procedure: XR clavicle LT Ordering Provider: Deacon Sandoval D.O. PROCEDURE: XR CLAVICLE LT INDICATIONS: fall TECHNIQUE: 2 views of the clavicle were acquired. COMPARISON: [facility], CR, XR CHEST 2V, 07/26/2018, 20:26. [facility], CR, XR HIP W PEL IF DONE LT 2V, 05/07/2019, 8:32. FINDINGS: Bones: No fractures or dislocations. No suspicious bony lesions. The visualized ribs are unremarkable. Degenerative changes are seen, including moderate subacromial spurring. Soft tissues: No suspicious soft tissue calcifications. The aorta is prominent and tortuous. The visualized lung demonstrates an unremarkable appearance. IMPRESSION: Degenerative changes, without acute fracture seen. If there is point tenderness (or other clinical suspicion for a fracture not seen on these images) then a dedicated CT could be considered for further evaluation, as clinically appropriate. Dictated by: Alejo Dover M.D. on 05/07/2019 at 8:12 Approved by: Alejo Dover M.D. on 05/07/2019 at 8:14 Hip x-ray: Radiologist's impression: [address] [address] XRay Report Signed Patient: Tristan Kapadia GMR#: [id number] : 1Acct:[id number] Age/Sex: 79 / MDate of Service: 05/07/19 Loc: ED Accession Number: [id number] Procedure: XR hip w pel if done LT 2V Ordering Provider: Deacon Sandoval D.O. PROCEDURE: XR HIP W PEL IF DONE LT 2V INDICATIONS: fall TECHNIQUE: AP pelvis with lateral view(s) of the left hip(s). COMPARISON: [facility], CR, XR CLAVICLE LT, 05/07/2019, 8:32. [facility], MR, MR PELVIS WO/W CON, 06/28/2018, 18:54. [facility], CT, CT CHEST ABD PEL W CON, 05/26/2018, 9:02. FINDINGS: Bones: No fractures or dislocations. Pelvic ring appears intact. No suspicious bony lesions. There is moderate superior joint space narrowing seen of both hips, right worse than left, with associated remodeling changes with subchondral sclerosis and osteophyte formation. Age-appropriate lower lumbar spine degenerative changes are noted. Soft tissues: The visualized bowel gas pattern is normal. No suspicious soft tissue calcifications. IMPRESSION: No displaced fractures are seen on these plain films. Degenerative changes are seen, with moderate joint space narrowing of the hips, right worse than left. If there is focal tenderness, or other clinical concern for a fracture not seen on these images in this patient with a given history of trauma, please consider a dedicated CT or a short-term followup plain film series (in 1-2 weeks) for further evaluation. Dictated by: Alejo Dover M.D. on 05/07/2019 at 8:17 Approved by: Alejo Dover M.D. on 05/07/2019 at 8:18 CT hip: Radiologist's impression: [place] [address] CT Scan Report Signed Patient: Tristan Kapadia R#: [id number] : 1Acct:[id number] Age/Sex: 79 / MDate of Service: 05/07/19 Loc: ED Accession Number: [id number] Procedure: CT pelvis wo con Ordering Provider: Deacon Sandoval D.O. PROCEDURE: CT PEL WO CON INDICATIONS: hip pain after fall TECHNIQUE: Noncontrast 3 mm axial sections acquired through the bony pelvis, with coronal and sagittal reformatting. COMPARISON: [facility], CT, CHEST/ABD/PEL WITH CONTRAST, 08/26/2017, 12:30. [facility], CT, CT CHEST ABD PEL W CON, 05/26/2018, 9:02. [facility], CR, XR HIP W PEL IF DONE LT 2V, 05/07/2019, 8:32. FINDINGS: Image quality: Excellent. Bones: There is a mildly displaced fracture of the left anterior acetabulum, as on series 2 image 55. No femur fracture is seen. No dislocation can be seen. No pubic ramus fracture is seen. Degenerative changes are seen throughout. There is a stable L5 compression deformity, with 50% loss of height centrally, which is unchanged compared to 2018. There is prominent fusion the right sacroiliac joint and mild fusion of the left sacroiliac joint. Soft tissues: No dilated loops of bowel are seen. Diverticulosis is seen, without findings of active diverticulitis. Atherosclerotic calcification is seen. A mild periumbilical hernia is seen, containing fat. An additional right lower quadrant anterior abdominal hernia seen, which contains nondilated small bowel. Bilateral fat-containing inguinal hernias are seen. There is a cystic focus seen involving the right lower pelvis, which is unchanged compared to 2018. Prior prostatectomy. IMPRESSION: There is a mildly displaced fracture of the left anterior acetabulum. There is a right lower quadrant anterior abdominal wall hernia seen, which contains nondilated small bowel. An adjacent fat-containing periumbilical hernia is also present. There is a stable right pelvis fluid collection seen. This may be related to a synovial inclusion cyst. Differential diagnosis also includes a seroma. Incidental note is made of: Diverticulosis is seen, without findings of active diverticulitis. Bilateral fat-containing inguinal hernias are seen. Prostatectomy Stable L5 compression deformity Dictated by: Alejo Dover M.D. on 05/07/2019 at 11:05 Approved by: Alejo Dover M.D. on 05/07/2019 at 11:11 MDM Narrative Medical decision making narrative: Patient has full did sound mechanical. His x-ray was negative however had significant pain with walking that is why the CT scan was ordered. Does show a anterior wall acetabular fracture. I did discuss the case with Dr. Madrid who is on for Orthopedics who stated that as long as it does not displace this is a non operative nonweightbearing injury. I did discuss this with the patient and his granddaughter and son who are at bedside. We did discuss the importance of being nonweightbearing. We discussed how he could do this at home. We did discuss admitting him to the hospital for physical therapy versus potential rehab placement. After this discussion the entire family stated that they feel like he would be able to do the things he needs to do at home and remain nonweightbearing. He was given crutches. Will send home with pain medication. He was given follow-up instructions. He expressed understanding and agreement with plan. Discharge Plan Departure Patient Disposition: Home Clinical Impression: Acetabulum fracture, left Qualifiers: Encounter type: initial encounter Sublocation of acetabulum: anterior wall Fracture type: closed Fracture alignment: nondisplaced Qualified Code(s): S32.415A - Nondisplaced fracture of anterior wall of left acetabulum, initial encounter for closed fracture Fall Qualifiers: Encounter type: initial encounter Qualified Code(s): W19.XXXA - Unspecified fall, initial encounter Instructions: How to Use Crutches, How to Prevent Falls Activity Restrictions/Additional Instructions: It is important that you remain nonweightbearing on her left leg like we discussed. Use the crutches like we discussed. It is also important that you do not fall at home. Contact your primary doctor on Thursday for follow-up. He can also contact the [facility] at [phone]. I did discuss her case with Dr. Madrid. She would like to see you in the clinic in 7-10 days. Return to the emergency department for any new or worsening symptoms Prescriptions: New hydrocodone-acetaminophen [Stopover] 5-325 mg tablet 1 tab PO Q4-6H PRN (Reason: pain) Qty: 10 RF: 0 No Action sildenafil [Viagra] 100 MG tablet 100 mg PO 3 X WEEK PRN (Reason: Sexual Activity) Qty: 0 RF: 0 zinc gluconate 10 mg Lozenge 1 tab PO QDAY Qty: 0 RF: 0 [GARLIC OIL] 1 cap PO QDAY Qty: 0 RF: 0 calcium carbonate-vitamin D3 [Oyster Shell Calcium-Vit D3] 500 mg(1,250mg) -200 unit Tablet 1 tab PO QDAY Qty: 0 RF: 0 ibuprofen [Advil] 200 MG tablet 400 mg PO Q6HP PRN (Reason: Pain (Scale Score 1-3)) Qty: 0 RF: 0 Referrals: Zeus Medeiros MD [Primary Care Provider] -
[2019-05-07] MEDS: HYDROCODONE/ACET 5/325 TABLET 1 TAB PO (09:35)
[2019-05-07 09:40] VITALS: BP 137/65; PULSE 55; RESP 20; O2SAT 97
[2019-05-07 11:03] VITALS: BP 131/65; PULSE 51; RESP 15; O2SAT 96
--- NOTE | 2019-05-07 11:31 | PC.NURSE ---
pt was able to stand and bear weight on his left leg. pt was steady with minimal shakiness. pt started to shake upon sitting down. both arms. states that he has been shaking for a month. attempted a walker and the pain was worse in his hip. Dr. Sandoval aware and is evaluating patient
--- NOTE | 2019-05-07 11:33 | DI.CT.S_ITS ---
PROCEDURE: CT PEL WO CON INDICATIONS: hip pain after fall TECHNIQUE: Noncontrast 3 mm axial sections acquired through the bony pelvis, with coronal and sagittal reformatting. COMPARISON: [facility], CT, CHEST/ABD/PEL WITH CONTRAST, 08/26/2017, 12:30. [facility], CT, CT CHEST ABD PEL W CON, 05/26/2018, 9:02. [facility], CR, XR HIP W PEL IF DONE LT 2V, 05/07/2019, 8:32. FINDINGS: Image quality: Excellent. Bones: There is a mildly displaced fracture of the left anterior acetabulum, as on series 2 image 55. No femur fracture is seen. No dislocation can be seen. No pubic ramus fracture is seen. Degenerative changes are seen throughout. There is a stable L5 compression deformity, with 50% loss of height centrally, which is unchanged compared to 2018. There is prominent fusion the right sacroiliac joint and mild fusion of the left sacroiliac joint. Soft tissues: No dilated loops of bowel are seen. Diverticulosis is seen, without findings of active diverticulitis. Atherosclerotic calcification is seen. A mild periumbilical hernia is seen, containing fat. An additional right lower quadrant anterior abdominal hernia seen, which contains nondilated small bowel. Bilateral fat-containing inguinal hernias are seen. There is a cystic focus seen involving the right lower pelvis, which is unchanged compared to 2018. Prior prostatectomy. IMPRESSION: There is a mildly displaced fracture of the left anterior acetabulum. There is a right lower quadrant anterior abdominal wall hernia seen, which contains nondilated small bowel. An adjacent fat-containing periumbilical hernia is also present. There is a stable right pelvis fluid collection seen. This may be related to a synovial inclusion cyst. Differential diagnosis also includes a seroma. Incidental note is made of: Diverticulosis is seen, without findings of active diverticulitis. Bilateral fat-containing inguinal hernias are seen. Prostatectomy Stable L5 compression deformity Dictated by: Alejo Dover M.D. on 05/07/2019 at 11:05 Approved by: Alejo Dover M.D. on 05/07/2019 at 11:11
[2019-05-07] MEDS: KETOROLAC 60 MG/2 ML VIAL 30 MG IM (11:42)
[2019-05-07 11:46] VITALS: TEMP 36.3
[2019-05-07 12:47] VITALS: BP 143/71; PULSE 56; O2SAT 98
== END 2019-05-07 13:20 | disposition home or self-care (01) ==
PROVIDERS: Emergency Provider Emergency Medicine; PCP Family Medicine
DX: S32.415A Nondisplaced fracture of anterior wall of left acetabulum, initial encounter for closed fracture (principal); S49.92XA Unspecified injury of left shoulder and upper arm, initial encounter; W19.XXXA Unspecified fall, initial encounter
CPT/HCPCS: 72192; 73000; 73502; 81003; 96372; 99283; 99284; J1885

== ENCOUNTER 2019-06-12 12:05 | Emergency (ER) | payer MEDICARE, SELFPAY ==
[2019-06-12 12:26] VITALS: O2SAT 94
--- NOTE | 2019-06-12 12:29 | ED_ITS ---
HPI - CPR General Chief Complaint: Cardiac Arrest/CPR Stated Complaint: CPR Time Seen by Provider: 06/12/19 12:20 Source: family and EMS Mode of arrival: EMS History of Present Illness HPI narrative: 79-year-old male nonsmoker with only medical history of chronic pain. Patient went to bed feeling fine (per family) and started having a decline and was initially called out as a stroke due to mental status change. Basic complaint inspector placed AED which did not advise shock. Patient quickly became unresponsive and pulseless. EMT use arrived and initiated ACLS protocol. IO was placed in right tibia and LMA was placed. There was prolonged on scene transport time and patient had been coded for at least 30 minutes prior to arrival and at no point had any regain of pulses, change in end-tidal CO2 or other positive signs. His only medications known were opioids and he was given Narcan without change. Patient was brought into room 1 and the code was continued. Family was quickly at bedside. MD complaint: stopped breathing Timing confirmed by: family member Place: home Bystander CPR performed: No AED applied by bystander/twisting department end finder: Yes Shock advised: No Initial findings in the field: lethargic ROSC in the field: No Associated injuries: No Known history of: recent surgery Treatments prior to arrival: other airway device and chest compressions Related Data Home Medications Medication Instructions Recorded Confirmed sildenafil [Viagra] 100 mg PO 3 X WEEK PRN #0 04/18/17 02/17/19 [GARLIC OIL] 1 cap PO QDAY #0 08/13/17 02/17/19 calcium carbonate-vitamin D3 1 tab PO QDAY #0 08/13/17 02/17/19 [Oyster Shell Calcium-Vit D3] zinc gluconate 1 tab PO QDAY #0 08/13/17 02/17/19 ibuprofen [Advil] 400 mg PO Q6HP PRN #0 08/27/17 02/17/19 Previous Rx's Medication Instructions Recorded hydrocodone-acetaminophen [[place]] 1 tab PO Q4-6H PRN #10 tab 05/07/19 Allergies Allergy/AdvReac Type Severity Reaction Status Date / Time timolol Allergy Verified 05/07/19 08:48 fentanyl AdvReac Verified 05/07/19 08:48 Review of Systems Review of Systems Narrative: patient unresponsive, this ROS is from son Constitutional Constitutional: Denies chills, Denies fatigue, Denies fever(s), Denies frequent falls, Denies lethargy and Denies weakness Eyes Eyes: Denies change in vision, Denies eye discharge, Denies irritation and Denies loss of vision ENT Ears, Nose, Mouth, and Throat: Denies change in voice, Denies dizziness, Denies neck pain, Denies sore throat and Denies throat swelling Cardiovascular Cardiovascular: Denies chest pain, Denies irregular heart rhythm, Denies lightheadedness, Denies palpitations, Denies dyspnea, Denies dyspnea on exertion and Denies orthopnea Respiratory Respiratory: Denies cough, Denies dyspnea, Denies dyspnea on exertion and Denies wheezing Gastrointestinal Gastrointestinal: Denies abdominal pain, Denies change in bowel habits, Denies diarrhea, Denies nausea and Denies vomiting Genitourinary Genitourinary: Denies hematuria, Denies flank pain, Denies urinary incontinence and Denies urinary urgency Musculoskeletal Musculoskeletal: Reports abnormal gait, Reports back pain, Denies muscle weakness, Denies neck pain, Denies numbness and Denies tingling Integumentary/Breasts Skin/Breast: Denies pruritus, Denies erythema, Denies rash and Denies wounds Neurologic Neurologic: Reports abnormal gait, Denies behavioral changes, Denies confusion, Denies dizziness, Denies frequent falls, Denies loss of vision, Denies numbness, Denies tingling and Denies weakness Psychiatric Psychiatric: Denies anxiety, Denies behavioral changes, Denies confusion, Denies depression, Denies homicidal ideation and Denies suicidal ideation Endocrine Endocrine: Denies fatigue, Denies flushing and Denies palpitations Hematologic/Lymphatic Hematologic/Lymphatic: Denies easy bruising Allergic/Immunologic Allergic/Immunologic: Denies urticaria, Denies throat swelling and Denies wheezing Patient History Medical History Prostate cancer (Chronic) Social History Smoking Status: Never smoker alcohol intake frequency: 0-2 drinks per day Substance Use Type: does not use Exam Narrative Exam Narrative: GENERAL: [79] year old patient appears older than stated age. Obviously critically ill, CPR in progress HEAD: Atraumatic. Normocephalic. EYES: Fixed and dilated ENT: Nose without bleeding, purulent drainage. Throat without erythema, tonsillar hypertrophy or exudate. Airway patent. NECK: Trachea midline. Non tender CARDIOVASCULAR: CPR in progress RESPIRATORY: Equal breath sounds with [id number] GASTROINTESTINAL: Abdomen soft, non-tender, nondistended. EXTREMITIES: Mottling No edema or joint tenderness. IO and right tip BACK: Nontender without deformity or crepitance. No flank tenderness. NEURO: Unresponsive intubated SKIN: No rash or erythema of visible areas Course Course Course Narrative: Three more rounds of ACLS performed without any return of spontaneous circulation or change in clinical picture. Careful attention to minimizing breaks in CPR ultrasound demonstrates no tamponade or any cardiac activity. Time of 12:18 p.m. PCP notified Orders Ordered: Discontinued Medications Furosemide (Lasix) 40 mg IV NOW ONE Stop: 06/12/19 14:11 Ceftriaxone Sodium/Dextrose (Rocephin) 1 gm in 50 mls @ 100 mls/hr IV NOW ONE Stop: 06/12/19 14:39 Discharge Plan Departure Patient Disposition: Clinical Impression: Cardiac arrest Discharge Date/Time: 06/12/19 14:00 Referrals: Zeus Medeiros MD [Primary Care Provider] -
--- NOTE | 2019-06-12 13:26 | PC.NURSE ---
spoke with Lori Palacios, yes coroners case for certificate due to recent surgery. may send pt to [facility].
--- NOTE | 2019-06-12 14:20 | PC.NURSE ---
see code sheet
--- NOTE | 2019-06-12 14:25 | PC.NURSE ---
at 1340 2 botttle of pts narcotic given to [facility] pharmacy, hydrocone 9 pills, hydromorphone 2mg 25pills
== END 2019-06-12 14:00 | disposition expired ==
PROVIDERS: Emergency Provider Emergency Medicine; PCP Family Medicine
DX: I46.9 Cardiac arrest, cause unspecified (principal)
CPT/HCPCS: 92950; 94770; 94799; 99282; 99285; J0171